=== PATIENT | female | born 1960 | race Caucasian/White ===

== ENCOUNTER 2016-12-31 06:35 | Emergency (ER) | payer MEDICARE, MEDICAID ==
--- NOTE | 2016-12-31 07:09 | ED Physician Chart ---
Chief Complaint/HPI - Patient Information Date Seen:: 12/31/16 Time Seen:: 07:04 Chief Complaint:: abd p History of Present Illness:: pt picked up by ems at [facility], [facility]. stated shes had abd p since last nt w sev [facility] abd p. pt says she has had this before but is not very informative as to prior dx of anguiano hx. says she was admit here for 3 days recently but cant say why. she denies n/v/d or fever. says she is supposed to be on med for depression and xarelto for hx of PE but is noncompliant. she says she is on pain med from time to time rarely but wont say what , how much or when last rxd. pt has been drinking etoh. pt c/o being thirsty and wants water. Allergies:: Allergies Allergy/AdvReac Type Severity Reaction Status Date / Time No Known Allergies Allergy Verified 12/31/16 06:59 Vitals:: Vital Signs - 8 hr 12/31/16 06:40 Temp 97.1 F HR 130 RR 18 BP 138/84 O2 Sat % 97 Historian:: Patient Review of Systems - Review of Systems General/Constitutional: No fever, No chills, No weight loss, No weakness, No diaphoresis, No edema, No loss of appetite Skin: No skin lesions, No rash, No bruising Head: No headache, No light-headedness Eyes: No loss of vision, No pain, No diplopia ENT: No earache, No nasal drainage, No sore throat, No tinnitus Neck: No neck pain, No swelling, No thyromegaly, No stiffness, No mass noted Cardio Vascular: No chest pain, No palpitations, No PND, No orthopnea, No edema Pulmonary: No SOB, No cough, No sputum, No wheezing GI: No nausea, No vomiting, No diarrhea, Pain, No melena, No hematochezia, No constipation, No hematemesis G/U: No dysuria, No frequency, No hematuria Musculoskeletal: No bone or joint pain, No back pain, No muscle pain Endocrine: No polyuria, No polydipsia Psychiatric: No prior psych history, No depression, Anxiety, No suicidal ideation Hematopoietic: No bruising, No lymphadenopathy Allergic/Immuno: No urticaria, No angioedema Neurological: No syncope, No focal symptoms, No weakness, No paresthesia, No headache, No seizure, No dizziness, No confusion, No vertigo Past Medical History - Past Medical History Past Medical History: Other (PE Hx, abd pain (gi bleed from prior records), anxiety) Social History: Alcohol Psychiatricy History: Other (anxiety) Medication: Reviewed Family Medical History - Family Member Mother History Unknown: Yes Ethnicity: Non- Living Status: Hx Family Cancer: Yes (breast and stomach cancer) Hx Family Coronary Artery Disease: No Hx Family Congestive Heart Failure: No Hx Family Hypertension: No Hx Family Stroke: No Hx Family Diabetes: No Hx Family Seizures: No Hx Family Dementia: No Hx Family AIDS: No Hx Family HIV: No Hx Family COPD: No Hx Family Hepatitis: No Hx Family Psychiatric Problems: No Hx Family Tuberculosis: No Father History Unknown: Yes Living Status: Hx Family Cancer: No Hx Family Coronary Artery Disease: No Hx Family Congestive Heart Failure: No Hx Family Hypertension: No Hx Family Stroke: No Hx Family Diabetes: Yes Hx Family Seizures: No Hx Family Dementia: No Hx Family AIDS: No Hx Family HIV: No Hx Family COPD: No Hx Family Hepatitis: No Hx Family Psychiatric Problems: No Hx Family Tuberculosis: No Physical Exam - Physical Examination General/Constitutional: Awake, Well-developed, well-nourished, Alert, No distress, GCS 15, Non-toxic appearing, Ambulatory Other Gen/Cons comments:: mod obese. color ok Head: Atraumatic Eyes: Lids, conjuctiva normal, PERRL, EOMI Skin: Nl inspection, No rash, No skin lesions, No ecchymosis, Well hydrated, No lymphadenopathy ENMT: External ears, nose nl, Nasal exam nl, Lips, teeth, gums nl Neck: Nontender, Full ROM w/o pain, No JVD, No nuchal rigidity, No bruit, No mass, No stridor Respiratory: Nl effort/Exclusion, Clear to Auscultation, No Wheeze/Rhonchi/Rales Cardio Vascular: RRR, No murmur, gallop, rubs, NL S1 S2 GI: No organomegaly, No hernia, Normal BS's, Nondistended, No mass/bruits, No McBurney tenderness Other GI comments:: vague tndr all over : No CVA tenderness Extremities: No tenderness or effusion, Full ROM, normal strength in all extremities, No edema, Normal digits & nails Neuro/Psych: Alert/oriented, DTR's symmetric, Normal sensory exam, Normal motor strength, Judgement/insight normal, Mood normal, Normal gait, No focal deficits Misc: normal gait, Normal back, No paraspinal tenderness Labs/Radiology/EKG Results - Lab Results Results: Laboratory Tests 12/31/16 12/31/16 12/31/16 06:59 06:59 06:59 WBC 9.3 D RBC 4.74 Hgb 14.9 D Hct 44.4 D MCV 93.7 MCH 31.5 H MCHC Differential 33.6 RDW 15.4 Plt Count 368 D MPV 5.7 Neutrophils % 76.1 Lymphocytes % 16.4 L Monocytes % 6.5 Eosinophils % 0.3 Basophils % 0.7 PT 9.6 INR 0.92 PTT (Actin FS) 25.7 L Specimen Source Sample Site pH pCO2 pO2 HCO3 Base Excess O2 Saturation Doc Test Inspired O2 Critical Value Sodium Potassium Chloride Carbon Dioxide Anion Gap BUN Creatinine Est GFR ( Amer) Est GFR (Non-Af Amer) BUN/Creatinine Ratio Glucose Calcium Total Bilirubin AST ALT Alkaline Phosphatase Troponin I Total Protein Albumin Globulin Albumin/Globulin Ratio Triglycerides 727 H Cholesterol 301 H LDL Cholesterol Direct 119 HDL Cholesterol 79 Lipase TSH Ethyl Alcohol 12/31/16 12/31/16 12/31/16 06:59 06:59 06:59 WBC RBC Hgb Hct MCV MCH MCHC Differential RDW Plt Count MPV Neutrophils % Lymphocytes % Monocytes % Eosinophils % Basophils % PT INR PTT (Actin FS) Specimen Source Sample Site pH pCO2 pO2 HCO3 Base Excess O2 Saturation Doc Test Inspired O2 Critical Value Sodium 134 L Potassium 3.9 Chloride 97 L Carbon Dioxide 7.5 L* Anion Gap 33.4 H BUN 19 Creatinine 0.7 Est GFR ( Amer) > 60.0 Est GFR (Non-Af Amer) > 60.0 BUN/Creatinine Ratio 27.1 Glucose 75 Calcium 9.1 Total Bilirubin 0.5 AST 39 ALT 23 Alkaline Phosphatase 242 H Troponin I 0.05 Total Protein 7.5 Albumin 4.5 Globulin 3.0 Albumin/Globulin Ratio 1.5 Triglycerides Cholesterol LDL Cholesterol Direct HDL Cholesterol Lipase TSH 0.29 L Ethyl Alcohol 12/31/16 12/31/16 12/31/16 06:59 06:59 09:04 WBC RBC Hgb Hct MCV MCH MCHC Differential RDW Plt Count MPV Neutrophils % Lymphocytes % Monocytes % Eosinophils % Basophils % PT INR PTT (Actin FS) Specimen Source Arterial Sample Site Left Radial pH 7.12 L* pCO2 31.0 L pO2 70.0 L HCO3 10.6 L Base Excess -18.0 L O2 Saturation 86.0 L Doc Test PASS Inspired O2 21 Critical Value PW Sodium Potassium Chloride Carbon Dioxide Anion Gap BUN Creatinine Est GFR ( Amer) Est GFR (Non-Af Amer) BUN/Creatinine Ratio Glucose Calcium Total Bilirubin AST ALT Alkaline Phosphatase Troponin I Total Protein Albumin Globulin Albumin/Globulin Ratio Triglycerides Cholesterol LDL Cholesterol Direct HDL Cholesterol Lipase 34 TSH Ethyl Alcohol 316 H - Radiology Results Results: ct abd/p - nonobs renal stone. no acute inflamatory change. fatty liver. - EKG Interpretations EKG Time:: 07:00 Rate & Rhythm: nsr 130 [place]: -3 Intervals: ok Assessment - Assessment General Assessment: pt initially denies freq narc hx but later admits is on Percocet (but "wasnt sure if thats a narcotic")..had withheld this earlier. a review of pts chart shows she was here 2 wks ago for abd p w vomiting of ?cg material. a upper endoscopy was performed and showed chronic gastritis...yet pt returns here 2 wks later and s noncompliant w her PPI medication. She given me no explanation as to why she didnt fill it. explains she doesnt know where her is rt now so he cant pick her up. Our anguiano is fairly complete w ct ok no acute. labs concerning for sonia high lipids and acidosis (seen on prior stay also and deemed likely 2nd etoh ..which again seems the case as etoh >300. H+H is stable. pt vomited 1x of brown material in ed. ( i wasnt notified at time but it doesnt sound like dark/tar /cg appearance). DW pt that I think her pain is likely from gastritis which is not being txd and exacerbated by chronic etoh abuse. She has been difficult to staff w freq req for pain meds. have explained to pt that I am not giving her more ms ( narcs) as of now since her etoh so high not safe. giving her gi cocktail and protonix. pt taking po fluids. ED Septic Shock - . Is Septic Shock (SBP<90, OR Lactate>4 mmol\\L) present?: No - <6hrs of presentation: Vital Signs: Vital Signs - 8 hr 12/31/16 06:40 Temp 97.1 F HR 130 RR 18 BP 138/84 O2 Sat % 97 Reassessment (Disposition) - Reassessment Reassessment:: case dw Dr Crouch (10:29a) regarding pt w long ed stay ahead and staff feel pt could be admit...Dr Sylvie romeos says pts problem seems to be etohism (and noncompliance) w gastritis as result... doesnt think admit is of benefit... (;20a)- pt vomited...had been eating sandwhich. emesis examined by me is not bloody or coffee grnds. pt is complaining of pain. had a long dw pt about why i think her pain is from gastritis and in- appropriate care. she needs to start eating food instead of gets all her calories from etoh...she admits is skipping meals and drinking... also needs to be compliant w her protonix which i have rxd again (along w carafate). giving compazine and carafate to pt now. Avelina(RN) notes that the prior emesis (mentioned above) was witnessed by herself as self induced with pt putting finger down throat to induce...she had received zofran hrs before and has been taking po fluid well and not complained of any nausea prior to vomiting. when confronted by Sophie pt now claims has bulemia. pt had a psych eval 2 wks ago here. Pt's behavior seems to be repetitively deceptive and/or withholding of information..and w freq unexplained noncompliance. Have explained to pt we will need to hold her here for repeat etoh and labs check. she is unhappy that she is not receiving more narcotics during this obs time however i explained to her risk of etoh w narcotics and res depression... ...pts has just been reached by phone, and may take her home if he arrives sober. pt advised to take protonix and carafate as rxd and eat regular meals. seeks help w [facility] or other agency for etohism as her life may be greatly expanded in range if she can do this and liver shows fatty infiltration, gastritis and hyperlipidemia all are result of this behavior and hepatitis/cirrhosis can be expected if this persists. pt advised to see pmd modesta and/or return if worse( worse pain, fever,weakness, dehydration, persistent vomiting/diarrhea, bloody emesis...) pt's arrived ...and a short time later pts hr which had been trending downwards suddenly inexplicably jumped up to 150...it resolved back down within the hour and jasiel suspicion of outside drug/med ingestion given pts course (she act described a prior hosp stay where she was pos for etoh after a week in hosp...also inexplicably...) given pt vs lability i advised pt to have repeat labs and drug screen. would be reassuring to see acidosis improving ...however pt opted to sign out ama w signing forms. Reassessment Condition:: Improved - Diagnosis Diagnosis:: 1 etohic 2 dehydration 3 abdominal pain 2nd gastritis hx w noncompliant w tx plan 4 bullemia hx (self reported by pt) 5 severe hyperlipidemia 5 acidosis presumed related to etoh - Aftercare/Follow up Instructions Aftercare/Follow-Up Instructions:: Counseled pt regarding lab results/diagnosis & need follow up - Patient Disposition Discharge/Transfer:: Against Medical Advice Condition at Disposition:: Improved ED Discharge Plan - Patient Disposition Prescriptions: Pantoprazole [Protonix] 40 mg PO DAILY #30 ect Sucralfate [Carafate] 1 gm PO TID PRN #50 tab PRN Reason: gastric pain Instructions: Gastritis, Adult, [id number], Dehydration, Adult, [id number] , Alcohol Intoxication Additional Instructions: Pls follow up with PMD in 1 day.
[2016-12-31 07:10] LABS: % BASOPHILS 0.7 % (0.0-2.0); % EOSINOPHILS 0.3 % (0.0-5.0); % LYMPHOCYTES 16.4 % (20.0-50.0); % MONOCYTES 6.5 % (2.0-10.0); % NEUTROPHILS 76.1 % (40.0-80.0); MEAN CELL VOLUME 93.7 fl (81-100); MEAN CORPUSCULAR HEMOGLOBIN 31.5 pg (27.0-31.0); MEAN CORPUSCULAR HGB CONC 33.6 pg (28.0-36.0); MEAN PLATELET VOLUME 5.7 fl; NEUTROPHILE ABSOLUTE 7.1 Th/cmm (1.8-8.0); RED BLOOD COUNT 4.74 Mil/cmm (3.80-5.10); RED CELL DISTRIBUTION WIDTH 15.4 % (11.5-20.0)
[2016-12-31] MEDS ORDERED: Sodium Chloride 0.9% 1,000 ML IV ONE ×3 (07:10→10:21)
[2016-12-31 07:12] LABS: HEMATOCRIT 44.4 % (35.0-45.0); HEMOGLOBIN 14.9 gm/dL (11.7-15.5); PLATELET COUNT 368 Th/cmm (150-400); WHITE BLOOD COUNT 9.3 Th/cmm (4.8-10.8)
[2016-12-31] MEDS ORDERED: Morphine Sulfate 4 mg/mL 1mL Syr ONE (07:14)
[2016-12-31 07:28] LABS: INR 0.92 (0.5-1.4); PROTHROMBIN TIME (TEST) 9.6 SECONDS (9.5-11.5)
[2016-12-31 07:30] LABS: ALB/GLOB RATIO 1.5 (1.0-1.8); ALKALINE PHOSPHATASE 242 U/L (34-104); ANION GAP 33.4 (7.0-16.0); BILIRUBIN,TOTAL 0.5 mg/dL (0.3-1.0); BUN - UREA NITROGEN 19 mg/dL (7-25); BUN/CREATININE RATIO 27.1; CALCIUM SERUM 9.1 mg/dL (8.6-10.3); CHLORIDE 97 mEq/L (98-107); CREATININE - SERUM 0.7 mg/dL (0.6-1.2); GLUCOSE 75 mg/dL (70-105); POTASSIUM SERUM 3.9 mEq/L (3.5-5.1); SGOT 39 U/L (13-39); SGPT/ALT 23 U/L (7-52); SODIUM SERUM 134 mEq/L (136-145)
[2016-12-31 07:31] LABS: CHOLESTEROL 301 mg/dL (<200); TRIGLYCERIDES 727 mg/dL (<150)
[2016-12-31 07:33] LABS: CARBON DIOXIDE 7.5 mEq/L (21.0-31.0)
--- NOTE | 2016-12-31 09:08 | Diagnostic Imaging Report ---
CT scan abdomen and pelvis without intravenous contrast HISTORY: Pain Total DLP equals 369 CTDI equals 7.8 Axial sections were obtained from the xiphoid process down to the pubic symphysis. Exam is compared with a prior study of December 17, 2016. The exam of the liver demonstrates a decrease in overall parenchymal density consistent with fatty infiltration. The findings should be correlated with liver function tests. No focal lesions. The spleen appears normal. No focal abnormality seen in the region of the pancreas. Surgical clips are seen in the gege hepatis region consistent with prior cholecystectomy. The right kidney appears normal. Again noted and unchanged is an approximate 5 mm calculus within the medullary region of the left kidney without hydronephrosis. Mild atherosclerotic calcination seen in the aorta. The exam of the pelvis demonstrates a distended urinary bladder. No abnormal masses or abnormal fluid collections. Degenerative changes and scoliosis seen in the spine. IMPRESSION: 1. No definite acute abnormalities 2. 5 mm nonobstructing left renal catheter 3. Findings consistent with hepatic fatty infiltration 4. Moderately distended urinary bladder
[2016-12-31 09:23] LABS: HCO3 10.6 mEq/L (20.0-26.0)
[2016-12-31 09:24] LABS: ABG SOURCE Arterial; ALLEN TEST PASS; CRITICAL VALUES REPORTED BY PW; FIO2 21; pH 7.12 (7.35-7.45)
[2016-12-31] MEDS ORDERED: Maalox 30 mL Cup PO ONE (10:02)
[2016-12-31] MEDS ORDERED: Pantoprazole 40 mg EC Tab PO STA (10:02)
[2016-12-31] MEDS ORDERED: Donnatal Liq 5 ML UDC PO ONE (10:02)
[2016-12-31 10:04] LABS: URINE BILIRUBIN NEGATIVE (NEGATIVE); URINE COLOR YELLOW; URINE GLUCOSE (UA) NEGATIVE (NEGATIVE)
[2016-12-31] MEDS ORDERED: Maalox 30 mL Cup ONE (10:06)
[2016-12-31] MEDS ORDERED: Donnatal Liq 5 ML UDC ONE (10:07)
[2016-12-31] MEDS ORDERED: Pantoprazole 40 mg EC Tab PO ONE (10:07)
[2016-12-31 10:17] LABS: URINE BLOOD MODERATE (NEGATIVE); URINE PH 5.5; URINE PROTEIN 100 mg/dL (NEGATIVE)
[2016-12-31 10:18] LABS: URINE UROBILINOGEN 0.2 E.U./dL (0.2 - 1.0)
[2016-12-31 10:21] LABS: URINE BACTERIA MANY /hpf (NONE SEEN); URINE EPITHELIAL CELLS MODERATE /lpf (FEW)
[2016-12-31] MEDS ORDERED: Sodium Chloride 0.9% 500 ML IV ONE (10:21)
[2016-12-31 10:24] LABS: AMPHETAMINE URINE NEGATIVE (NEGATIVE); BARBITURATES URINE NEGATIVE (NEGATIVE); METHADONE URINE NEGATIVE (NEGATIVE)
[2016-12-31] MEDS ORDERED: Prochlorperazine 5 mg/mL 2mL Vial IVP STA (11:22)
[2016-12-31] MEDS ORDERED: Prochlorperazine 5 mg/mL 2mL Vial ONE (11:24)
== END 2016-12-31 12:40 | disposition left against medical advice (07) ==
LOC: ER 06:35
DX: R10.9 Unspecified abdominal pain (principal); F10.20 Alcohol dependence, uncomplicated; E86.0 Dehydration; E78.5 Hyperlipidemia, unspecified; E87.2 Acidosis
CPT/HCPCS: 36415-UA; 36600-90; 80053-TC; 80061-TC; 80307; 80320-TC; 81001-TC; 82803-TC; 83690-TC; 84443-TC; 84484-TC; 85025-TC; 85610-TC; 85730-TC; 86592-TC; 93005; 96374; 96375; J0780; J1885; J2405; J7030; Z7610

== ENCOUNTER 2017-02-11 11:36 | Inpatient (IN) | payer MEDICARE, MEDICAID ==
[2017-02-11 12:01] LABS: % BASOPHILS 0.5 % (0.0-2.0); % LYMPHOCYTES 24.9 % (20.0-50.0); % NEUTROPHILS 66.6 % (40.0-80.0); MEAN CELL VOLUME 93.9 fl (81-100); MEAN CORPUSCULAR HEMOGLOBIN 31.7 pg (27.0-31.0); MEAN CORPUSCULAR HGB CONC 33.8 pg (28.0-36.0); MEAN PLATELET VOLUME 6.2 fl; NEUTROPHILE ABSOLUTE 5.7 Th/cmm (1.8-8.0); PLATELET COUNT 389 Th/cmm (150-400); RED CELL DISTRIBUTION WIDTH 14.1 % (11.5-20.0); WHITE BLOOD COUNT 8.5 Th/cmm (4.8-10.8)
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
[2017-02-11 12:18] LABS: HEMATOCRIT 38.5 % (35.0-45.0)
[2017-02-11 12:19] LABS: ALB/GLOB RATIO 1.6 (1.0-1.8); ALKALINE PHOSPHATASE 114 U/L (34-104); ANION GAP 14.8 (7.0-16.0); BILIRUBIN,TOTAL 0.4 mg/dL (0.3-1.0); BUN - UREA NITROGEN 9 mg/dL (7-25); CALCIUM SERUM 9.9 mg/dL (8.6-10.3); CARBON DIOXIDE 23.1 mEq/L (21.0-31.0); CHLORIDE 109 mEq/L (98-107); CHOLESTEROL 221 mg/dL (<200); CREATININE - SERUM 0.5 mg/dL (0.6-1.2); GLUCOSE 97 mg/dL (70-105); POTASSIUM SERUM 3.9 mEq/L (3.5-5.1); SGOT 14 U/L (13-39); SGPT/ALT 8 U/L (7-52); SODIUM SERUM 143 mEq/L (136-145); TRIGLYCERIDES 261 mg/dL (<150)
[2017-02-11 13:20] VITALS: BP 134/76
[2017-02-11] MEDS ORDERED: Maalox 30 mL Cup PO PRN (13:21)
--- NOTE | 2017-02-11 16:05 | History & Physical ---
ADMIT DATE: 02/11/2017 CHIEF COMPLAINT: Depression. HISTORY OF PRESENT ILLNESS: This is a 56-year-old female who was brought to [facility] for depression. The patient states that she had plan to kill herself by taking pills. For this reason, the patient is now admitted to the Geropsych Unit. PAST MEDICAL HISTORY: DJD, chronic pain syndrome, history of alcohol abuse. MEDICATIONS: Please see medication reconciliation. ALLERGIES: No drug allergies. SOCIAL HISTORY: The patient was a former smoker and the patient currently alcohol abuser. The patient denies any illicit drugs. FAMILY HISTORY: Noncontributory. REVIEW OF SYSTEMS: GENERAL: Denies fevers, chills. CARDIOVASCULAR: Denies chest pain. RESPIRATORY: Denies SOB. GASTROINTESTINAL: Denies nausea, vomiting, abdominal pain. GENITOURINARY: Denies increased frequency or dysuria. All other systems are reviewed by me and are negative. PHYSICAL EXAMINATION: GENERAL: The patient is well developed, well nourished, no acute distress. VITAL SIGNS: Temperature 98.1, heart rate 101, blood pressure 121/91, respirations 18, O2 96%. HEENT: Head; normocephalic, atraumatic. NECK: Supple. No mass. LUNGS: Clear bilaterally. HEART: Regular rhythm. ABDOMEN: Soft, nontender. LABORATORY DATA: WBC 8.5, H and H 13.0 and 38.5, platelet of 389. Sodium 142, potassium 3.9, chloride 109, BUN 9, creatinine 0.5. ASSESSMENT: 1. History of alcohol abuse. 2. Degenerative joint disease. 3. Chronic back pain. 4. Depression. PLAN: The patient to be admitted to the Geropsych Unit. We will continue patient's home medications. Continue present management. JOB# [id number]
[2017-02-11] MEDS ORDERED: Magnesium Hydroxide (MOM) 30 mL UDC PO PRN (21:00)
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
--- NOTE | 2017-02-12 00:50 | History & Physical ---
ADMIT DATE: 02/11/2017 DICTATION ENDS HERE JOB# [id number]
--- NOTE | 2017-02-12 04:34 | Admit Criteria Form ---
Admit Criteria Forms - Admit Criteria Diagnosis: PSYCHIATRIC DISORDERS (Place 'X' for any and all applicable criteria): Ongoing inpatient care may be needed for 1 or more of the following(1)(2)(3)(4)( 6)(7)(8): [X ]I. Danger to self or others not manageable at lower level of care. [ ]II. Grave disability (eg, inability to perform self care necessary at lower level of care) [ ]III. Agitation or inappropriate behavior interfering with care for primary condition (eg, attempting to discontinue lines or drains prematurely, unable to cooperate with respiratory care) [ ]IV. Severe disability or disorder indicated by ALL of the following: [ ]a) Severe behavioral health disorder-related symptoms or condition indicated by 1 or more of the following: [ ]i) Severe problem with cognition, memory, judgment, or impulse control [ ]ii) Severe clinical manifestations (eg, hallucinations, delusions, other acute psychotic symptoms, julien, extreme agitation or anxiety) [ ]b) Patient management at lower level of care is not feasible until acute intervention or modification is initiated. Extended stay beyond goal length of stay for the primary condition may be needed until ALLof the following are present(1)(2)(3)(4)7)87)(23): [ ]a) Danger to self or others is absent or manageable at lower level of care [ ]b) Behavior crisis management, including physical or chemical restraints, is required and is not available at a lower level of care. [ ]c) Behavioral symptoms (e.g., agitation, somnolence, inappropriate behavior) are present, and are not manageable at a lower level of care. [ ]d) Patient cannot understand follow-up treatment and crisis plan. [ ]e) Provider and supports are sufficiently available at lower level of care. [ ]f) Patient can participate (e.g., verify absence of plan for harm) and is in needed of monitoring. The original [facility] content created by [facility] has been revised. The portions of the content which have been revised are identified through the use of italic text or in bold, and [facility] [employer] has neither reviewed nor approved the modified material. All other unmodified content is copyright [facility]. Please see references footnoted in the original [facility] edition 2017 Admit Criteria Met?: Yes
[2017-02-12] MEDS: Multivitamin Tab PO SCH (08:53)
[2017-02-12] MEDS ORDERED: HYDROCODONE BITARTRATE 30 MG PO SCH (09:00)
--- NOTE | 2017-02-12 13:21 | Progress Notes ---
DATE: 02/11/2017 The patient was discharged on 02/10/2017, however, due to issues with placement and bed availability, the discharge was delayed. She is discharging today, on 02/11/2017. No overt SI or HI. The patient denying any SI. No psychotic symptoms, calm, cooperative, friendly, linear, engaged, no events per staff. JOB# [id number]
--- NOTE | 2017-02-13 03:17 | Progress Notes ---
DATE: 02/11/2017 SUBJECTIVE: The patient was seen, chart reviewed, and discussed with staff. The patient remains depressed, withdrawn, slowly leading to SI, not rodney for safety, hopeless, despairing, wants to stay sober, does not know how to stay sober. in [facility], restraining orders. She cannot talk to him. She is constantly worried, feeling guilty, hopeless and despairing. Also with nausea, being treated appropriately. Sleep disturbed. Appetite poor. ASSESSMENT: The patient is linear and engaged, but slowly leading to SI, hopeless, psychological distress and turmoil, not rodney for safety. On a positive note, she is motivated for sobriety, thinking about a sober living. PLAN: We will continue to monitor, continue Cymbalta and titrate appropriately. The patient is not safe for a lower level of care at this time. JOB# [id number]
[2017-02-13] MEDS: Multivitamin Tab PO SCH (08:36)
--- NOTE | 2017-02-13 19:14 | Internal Medicine Prog Note ---
Internal Medicine Objective - Results Result Diagrams: 02/11/17 11:52 02/11/17 11:52 Recent Labs: Laboratory Last Values WBC 8.5 Th/cmm (4.8-10.8) 02/11/17 11:52 RBC 4.10 Mil/cmm (3.80-5.10) 02/11/17 11:52 Hgb 13.0 gm/dL (11.7-15.5) 02/11/17 11:52 Hct 38.5 % (35.0-45.0) D 02/11/17 11:52 MCV 93.9 fl (81-100) 02/11/17 11:52 MCH 31.7 pg (27.0-31.0) H 02/11/17 11:52 MCHC Differential 33.8 pg (28.0-36.0) 02/11/17 11:52 RDW 14.1 % (11.5-20.0) 02/11/17 11:52 Plt Count 389 Th/cmm (150-400) 02/11/17 11:52 MPV 6.2 fl 02/11/17 11:52 Neutrophils % 66.6 % (40.0-80.0) 02/11/17 11:52 Lymphocytes % 24.9 % (20.0-50.0) 02/11/17 11:52 Monocytes % 6.0 % (2.0-10.0) 02/11/17 11:52 Eosinophils % 2.0 % (0.0-5.0) 02/11/17 11:52 Basophils % 0.5 % (0.0-2.0) 02/11/17 11:52 Sodium 143 mEq/L (136-145) 02/11/17 11:52 Potassium 3.9 mEq/L (3.5-5.1) 02/11/17 11:52 Chloride 109 mEq/L (98-107) H 02/11/17 11:52 Carbon Dioxide 23.1 mEq/L (21.0-31.0) 02/11/17 11:52 Anion Gap 14.8 (7.0-16.0) 02/11/17 11:52 BUN 9 mg/dL (7-25) 02/11/17 11:52 Creatinine 0.5 mg/dL (0.6-1.2) L 02/11/17 11:52 Est GFR ( Amer) > 60.0 ml/min (>90) 02/11/17 11:52 Est GFR (Non-Af Amer) > 60.0 ml/min 02/11/17 11:52 BUN/Creatinine Ratio 18.0 02/11/17 11:52 Glucose 97 mg/dL (70-105) 02/11/17 11:52 Calcium 9.9 mg/dL (8.6-10.3) 02/11/17 11:52 Total Bilirubin 0.4 mg/dL (0.3-1.0) 02/11/17 11:52 AST 14 U/L (13-39) 02/11/17 11:52 ALT 8 U/L (7-52) 02/11/17 11:52 Alkaline Phosphatase 114 U/L (34-104) H 02/11/17 11:52 Troponin I 0.01 ng/mL (0.01-0.05) 02/11/17 11:52 Total Protein 7.4 gm/dL (6.0-8.3) 02/11/17 11:52 Albumin 4.6 gm/dL (3.7-5.3) 02/11/17 11:52 Globulin 2.8 gm/dL 02/11/17 11:52 Albumin/Globulin Ratio 1.6 (1.0-1.8) 02/11/17 11:52 Triglycerides 261 mg/dL (<150) H 02/11/17 11:52 Cholesterol 221 mg/dL (<200) H 02/11/17 11:52 LDL Cholesterol Direct 108 mg/dL (75-193) 02/11/17 11:52 HDL Cholesterol 65 mg/dL (23-92) 02/11/17 11:52 TSH 0.88 uIU/ml (0.34-5.60) 02/11/17 11:52 - Physical Exam Vitals and I&O: Vital Signs Temp 97.6 F 02/13/17 14:00 Pulse 114 02/13/17 14:00 Resp 20 02/13/17 14:00 BP 134/84 02/13/17 14:00 Pulse Ox 96 02/13/17 14:00 Intake & Output 02/13/17 02/13/17 02/14/17 06:59 18:59 06:59 Intake Total 2400 Balance 2400 Intake: Oral 2400 Other: # Voids 4 # Bowel Movements 1 Active Medications: Current Medications Acetaminophen (Tylenol) 650 mg PO Q4H PRN PRN Reason: Mild Pain / Temp above 100 Stop: 04/12/17 13:20 Al Hydrox/Mg Hydrox/Simethicone (Maalox) 30 ml PO Q4H PRN PRN Reason: GI DISTRESS Stop: 04/12/17 13:20 Last Admin: 02/12/17 13:06 Dose: 30 ml Duloxetine HCl (Cymbalta) 60 mg PO DAILY GRAZYNA PRN Reason: Protocol Stop: 04/14/17 11:51 Gabapentin (Neurontin) 300 mg PO BID GRAYZNA Stop: 04/12/17 16:59 Last Admin: 02/13/17 16:52 Dose: 300 mg Lorazepam (Ativan) 1 mg PO Q4H PRN; Protocol PRN Reason: Anxiety Stop: 04/12/17 15:26 Last Admin: 02/13/17 08:36 Dose: 1 mg Magnesium Hydroxide (Milk Of Magnesia) 30 ml PO HS PRN PRN Reason: Constipation Multivitamins/Vitamin C (Theragran) 1 tab PO DAILY GRAYZNA Stop: 04/13/17 08:59 Last Admin: 02/13/17 08:36 Dose: 1 tab Ondansetron HCl (Zofran Odt) 4 mg PO Q6H PRN PRN Reason: Nausea Stop: 04/13/17 16:14 Last Admin: 02/12/17 23:19 Dose: 4 mg Oxycodone HCl (Oxycontin) 20 mg PO DAILY GRAYZNA Stop: 04/13/17 08:59 Last Admin: 02/13/17 08:03 Dose: Not Given Oxycodone HCl (Oxycontin) 20 mg PO Q8HR PRN PRN Reason: Severe Pain Stop: 04/13/17 16:59 Last Admin: 02/13/17 13:06 Dose: 20 mg Quetiapine Fumarate (Seroquel) 50 mg PO HS GRAZYNA PRN Reason: Protocol Stop: 04/12/17 20:59 Last Admin: 02/12/17 20:12 Dose: 50 mg Zolpidem Tartrate (Ambien) 5 mg PO HS PRN PRN Reason: Insomnia Stop: 04/12/17 20:59 Last Admin: 02/12/17 20:12 Dose: 5 mg - Procedures Procedures: Procedures Procedure Code Date EGD BIOPSY SINGLE/MULTIPLE 85878 12/17/16 EXCISION OF STOMACH, ENDO, DIAGN [id number] 12/17/16
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
[2017-02-14] MEDS: Multivitamin Tab PO SCH (08:26)
--- NOTE | 2017-02-14 08:58 | General Progress Note ---
Subjective - Review of Systems Events since last encounter: patient continue to feel depressed withdrawn Objective - Results Result Diagrams: 02/11/17 11:52 02/11/17 11:52 Recent Labs: Laboratory Last Values WBC 8.5 Th/cmm (4.8-10.8) 02/11/17 11:52 RBC 4.10 Mil/cmm (3.80-5.10) 02/11/17 11:52 Hgb 13.0 gm/dL (11.7-15.5) 02/11/17 11:52 Hct 38.5 % (35.0-45.0) D 02/11/17 11:52 MCV 93.9 fl (81-100) 02/11/17 11:52 MCH 31.7 pg (27.0-31.0) H 02/11/17 11:52 MCHC Differential 33.8 pg (28.0-36.0) 02/11/17 11:52 RDW 14.1 % (11.5-20.0) 02/11/17 11:52 Plt Count 389 Th/cmm (150-400) 02/11/17 11:52 MPV 6.2 fl 02/11/17 11:52 Neutrophils % 66.6 % (40.0-80.0) 02/11/17 11:52 Lymphocytes % 24.9 % (20.0-50.0) 02/11/17 11:52 Monocytes % 6.0 % (2.0-10.0) 02/11/17 11:52 Eosinophils % 2.0 % (0.0-5.0) 02/11/17 11:52 Basophils % 0.5 % (0.0-2.0) 02/11/17 11:52 Sodium 143 mEq/L (136-145) 02/11/17 11:52 Potassium 3.9 mEq/L (3.5-5.1) 02/11/17 11:52 Chloride 109 mEq/L (98-107) H 02/11/17 11:52 Carbon Dioxide 23.1 mEq/L (21.0-31.0) 02/11/17 11:52 Anion Gap 14.8 (7.0-16.0) 02/11/17 11:52 BUN 9 mg/dL (7-25) 02/11/17 11:52 Creatinine 0.5 mg/dL (0.6-1.2) L 02/11/17 11:52 Est GFR ( Amer) > 60.0 ml/min (>90) 02/11/17 11:52 Est GFR (Non-Af Amer) > 60.0 ml/min 02/11/17 11:52 BUN/Creatinine Ratio 18.0 02/11/17 11:52 Glucose 97 mg/dL (70-105) 02/11/17 11:52 Calcium 9.9 mg/dL (8.6-10.3) 02/11/17 11:52 Total Bilirubin 0.4 mg/dL (0.3-1.0) 02/11/17 11:52 AST 14 U/L (13-39) 02/11/17 11:52 ALT 8 U/L (7-52) 02/11/17 11:52 Alkaline Phosphatase 114 U/L (34-104) H 02/11/17 11:52 Troponin I 0.01 ng/mL (0.01-0.05) 02/11/17 11:52 Total Protein 7.4 gm/dL (6.0-8.3) 02/11/17 11:52 Albumin 4.6 gm/dL (3.7-5.3) 02/11/17 11:52 Globulin 2.8 gm/dL 02/11/17 11:52 Albumin/Globulin Ratio 1.6 (1.0-1.8) 02/11/17 11:52 Triglycerides 261 mg/dL (<150) H 02/11/17 11:52 Cholesterol 221 mg/dL (<200) H 02/11/17 11:52 LDL Cholesterol Direct 108 mg/dL (75-193) 02/11/17 11:52 HDL Cholesterol 65 mg/dL (23-92) 02/11/17 11:52 TSH 0.88 uIU/ml (0.34-5.60) 02/11/17 11:52 RPR NONREACTIVE (NONREACTIVE) 02/11/17 11:52 - Physical Exam Vitals and I&O: Vital Signs Temp 98.6 F 02/14/17 06:49 Pulse 94 02/14/17 06:49 Resp 20 02/14/17 06:49 BP 144/88 02/14/17 06:49 Pulse Ox 96 02/14/17 06:49 Intake & Output 02/13/17 02/14/17 02/14/17 18:59 06:59 18:59 Intake Total 2400 120 Balance 2400 120 Intake: Oral 2400 120 Other: # Voids 4 3 # Bowel Movements 1 Active Medications: Current Medications Acetaminophen (Tylenol) 650 mg PO Q4H PRN PRN Reason: Mild Pain / Temp above 100 Stop: 04/12/17 13:20 Al Hydrox/Mg Hydrox/Simethicone (Maalox) 30 ml PO Q4H PRN PRN Reason: GI DISTRESS Stop: 04/12/17 13:20 Last Admin: 02/12/17 13:06 Dose: 30 ml Duloxetine HCl (Cymbalta) 60 mg PO DAILY GRAZYNA PRN Reason: Protocol Stop: 04/14/17 11:51 Last Admin: 02/14/17 08:25 Dose: 60 mg Gabapentin (Neurontin) 300 mg PO BID GRAZYNA Stop: 04/12/17 16:59 Last Admin: 02/14/17 08:26 Dose: 300 mg Hydrocortisone (Hydrocortisone 1%) 1 appl TP TID GRAZYNA Stop: 04/14/17 20:59 Last Admin: 02/14/17 08:49 Dose: 1 appl Lorazepam (Ativan) 1 mg PO Q4H PRN; Protocol PRN Reason: Anxiety Stop: 04/12/17 15:26 Last Admin: 02/13/17 08:36 Dose: 1 mg Magnesium Hydroxide (Milk Of Magnesia) 30 ml PO HS PRN PRN Reason: Constipation Multivitamins/Vitamin C (Theragran) 1 tab PO DAILY GRAZYNA Stop: 04/13/17 08:59 Last Admin: 02/14/17 08:26 Dose: 1 tab Ondansetron HCl (Zofran Odt) 4 mg PO Q6H PRN PRN Reason: Nausea Stop: 04/13/17 16:14 Last Admin: 02/12/17 23:19 Dose: 4 mg Oxycodone HCl (Oxycontin) 20 mg PO DAILY GRAZYNA Stop: 04/13/17 08:59 Last Admin: 02/13/17 08:03 Dose: Not Given Oxycodone HCl (Oxycontin) 20 mg PO Q8HR PRN PRN Reason: Severe Pain Stop: 04/13/17 16:59 Last Admin: 02/14/17 06:12 Dose: 20 mg Quetiapine Fumarate (Seroquel) 50 mg PO HS GRAZYNA PRN Reason: Protocol Stop: 04/12/17 20:59 Last Admin: 02/13/17 21:16 Dose: 50 mg Zolpidem Tartrate (Ambien) 5 mg PO HS PRN PRN Reason: Insomnia Stop: 04/12/17 20:59 Last Admin: 02/12/17 20:12 Dose: 5 mg - Procedures Procedures: Procedures Procedure Code Date EGD BIOPSY SINGLE/MULTIPLE 76763 12/17/16 EXCISION OF STOMACH, ENDO, DIAGN [id number] 12/17/16 Assessment/Plan - Problem List Patient Problems: All Active Problems SUICIDAL IDEATION; CHRONIC PAIN (Acute) Chest pain (Acute) R07.9
[2017-02-15] MEDS: Multivitamin Tab PO SCH (08:44)
--- NOTE | 2017-02-15 11:41 | General Progress Note ---
Subjective - Review of Systems Events since last encounter: patient awake, no distress Objective - Results Result Diagrams: 02/11/17 11:52 02/11/17 11:52 Recent Labs: Laboratory Last Values WBC 8.5 Th/cmm (4.8-10.8) 02/11/17 11:52 RBC 4.10 Mil/cmm (3.80-5.10) 02/11/17 11:52 Hgb 13.0 gm/dL (11.7-15.5) 02/11/17 11:52 Hct 38.5 % (35.0-45.0) D 02/11/17 11:52 MCV 93.9 fl (81-100) 02/11/17 11:52 MCH 31.7 pg (27.0-31.0) H 02/11/17 11:52 MCHC Differential 33.8 pg (28.0-36.0) 02/11/17 11:52 RDW 14.1 % (11.5-20.0) 02/11/17 11:52 Plt Count 389 Th/cmm (150-400) 02/11/17 11:52 MPV 6.2 fl 02/11/17 11:52 Neutrophils % 66.6 % (40.0-80.0) 02/11/17 11:52 Lymphocytes % 24.9 % (20.0-50.0) 02/11/17 11:52 Monocytes % 6.0 % (2.0-10.0) 02/11/17 11:52 Eosinophils % 2.0 % (0.0-5.0) 02/11/17 11:52 Basophils % 0.5 % (0.0-2.0) 02/11/17 11:52 Sodium 143 mEq/L (136-145) 02/11/17 11:52 Potassium 3.9 mEq/L (3.5-5.1) 02/11/17 11:52 Chloride 109 mEq/L (98-107) H 02/11/17 11:52 Carbon Dioxide 23.1 mEq/L (21.0-31.0) 02/11/17 11:52 Anion Gap 14.8 (7.0-16.0) 02/11/17 11:52 BUN 9 mg/dL (7-25) 02/11/17 11:52 Creatinine 0.5 mg/dL (0.6-1.2) L 02/11/17 11:52 Est GFR ( Amer) > 60.0 ml/min (>90) 02/11/17 11:52 Est GFR (Non-Af Amer) > 60.0 ml/min 02/11/17 11:52 BUN/Creatinine Ratio 18.0 02/11/17 11:52 Glucose 97 mg/dL (70-105) 02/11/17 11:52 Calcium 9.9 mg/dL (8.6-10.3) 02/11/17 11:52 Total Bilirubin 0.4 mg/dL (0.3-1.0) 02/11/17 11:52 AST 14 U/L (13-39) 02/11/17 11:52 ALT 8 U/L (7-52) 02/11/17 11:52 Alkaline Phosphatase 114 U/L (34-104) H 02/11/17 11:52 Troponin I 0.01 ng/mL (0.01-0.05) 02/11/17 11:52 Total Protein 7.4 gm/dL (6.0-8.3) 02/11/17 11:52 Albumin 4.6 gm/dL (3.7-5.3) 02/11/17 11:52 Globulin 2.8 gm/dL 02/11/17 11:52 Albumin/Globulin Ratio 1.6 (1.0-1.8) 02/11/17 11:52 Triglycerides 261 mg/dL (<150) H 02/11/17 11:52 Cholesterol 221 mg/dL (<200) H 02/11/17 11:52 LDL Cholesterol Direct 108 mg/dL (75-193) 02/11/17 11:52 HDL Cholesterol 65 mg/dL (23-92) 02/11/17 11:52 TSH 0.88 uIU/ml (0.34-5.60) 02/11/17 11:52 RPR NONREACTIVE (NONREACTIVE) 02/11/17 11:52 - Physical Exam Vitals and I&O: Vital Signs Temp 97.6 F 02/15/17 06:12 Pulse 92 02/15/17 11:21 Resp 20 02/15/17 11:21 BP 130/80 02/15/17 06:12 Pulse Ox 97 02/15/17 06:12 Intake & Output 02/14/17 02/15/17 02/15/17 18:59 06:59 18:59 Intake Total 1700 Balance 1700 Intake: Oral 1700 Other: # Voids 4 2 # Bowel Movements 1 0 Active Medications: Current Medications Acetaminophen (Tylenol) 650 mg PO Q4H PRN PRN Reason: Mild Pain / Temp above 100 Stop: 04/12/17 13:20 Last Admin: 02/14/17 19:02 Dose: 650 mg Al Hydrox/Mg Hydrox/Simethicone (Maalox) 30 ml PO Q4H PRN PRN Reason: GI DISTRESS Stop: 04/12/17 13:20 Last Admin: 02/12/17 13:06 Dose: 30 ml Duloxetine HCl (Cymbalta) 60 mg PO DAILY GRAZYNA PRN Reason: Protocol Stop: 04/14/17 11:51 Last Admin: 02/15/17 08:44 Dose: 60 mg Gabapentin (Neurontin) 300 mg PO BID GRAZYNA Stop: 04/12/17 16:59 Last Admin: 02/15/17 08:44 Dose: 300 mg Hydrocortisone (Hydrocortisone 1%) 1 appl TP TID GRAZYNA Stop: 04/14/17 20:59 Last Admin: 02/15/17 08:45 Dose: 1 appl Lorazepam (Ativan) 1 mg PO Q4H PRN; Protocol PRN Reason: Anxiety Stop: 04/12/17 15:26 Last Admin: 02/13/17 08:36 Dose: 1 mg Magnesium Hydroxide (Milk Of Magnesia) 30 ml PO HS PRN PRN Reason: Constipation Multivitamins/Vitamin C (Theragran) 1 tab PO DAILY GRAZYNA Stop: 04/13/17 08:59 Last Admin: 02/15/17 08:44 Dose: 1 tab Ondansetron HCl (Zofran Odt) 4 mg PO Q6H PRN PRN Reason: Nausea Stop: 04/13/17 16:14 Last Admin: 02/12/17 23:19 Dose: 4 mg Oxycodone HCl (Oxycontin) 20 mg PO DAILY GRAZYNA Stop: 04/13/17 08:59 Last Admin: 02/15/17 08:45 Dose: Not Given Oxycodone HCl (Oxycontin) 20 mg PO Q8HR PRN PRN Reason: Severe Pain Stop: 04/13/17 16:59 Last Admin: 02/15/17 06:58 Dose: 20 mg Quetiapine Fumarate (Seroquel) 50 mg PO HS GRAZYNA PRN Reason: Protocol Stop: 04/12/17 20:59 Last Admin: 02/14/17 21:12 Dose: 50 mg Zolpidem Tartrate (Ambien) 5 mg PO HS PRN PRN Reason: Insomnia Stop: 04/12/17 20:59 Last Admin: 02/12/17 20:12 Dose: 5 mg - Procedures Procedures: Procedures Procedure Code Date EGD BIOPSY SINGLE/MULTIPLE 98063 12/17/16 EXCISION OF STOMACH, ENDO, DIAGN [id number] 12/17/16 Assessment/Plan - Problem List Patient Problems: All Active Problems SUICIDAL IDEATION; CHRONIC PAIN (Acute) Chest pain (Acute) R07.9
--- NOTE | 2017-02-15 13:52 | Progress Notes ---
DATE: 02/11/2017 Dr. Parada covering for Dr. Noriega. SUBJECTIVE: Chart reviewed and the patient interviewed. Also discussed the patient's condition with the staff and reviewed records and labs. The patient seems to be calmer and seems to be slightly less intrusive. She is still writing notes about staff and about what is happening in the unit, but at the same time, she is slightly easier to redirect and she seems to be slightly less paranoid. She also did not call patient's ____ yesterday, which is a behavior that she was doing the days before. She also is easier to follow directions. ASSESSMENT: The patient is still psychotic, but showing some improvement. TREATMENT PLAN: We will continue monitoring her behavior and her condition closely. Also, Dr. Noriega has the patient on Seroquel 50 mg at bedtime for the last 2 days, which seemed to do some slight improvement. The patient also continues to take Cymbalta and continue to take Neurontin. No side effects of medications. We will continue same dose and we will continue to follow her condition closely. JOB# [id number]
--- NOTE | 2017-02-16 07:01 | General Progress Note ---
Subjective - Review of Systems Events since last encounter: patient awake, no acute distress condition improving slowly Objective - Results Result Diagrams: 02/11/17 11:52 02/11/17 11:52 Recent Labs: Laboratory Last Values WBC 8.5 Th/cmm (4.8-10.8) 02/11/17 11:52 RBC 4.10 Mil/cmm (3.80-5.10) 02/11/17 11:52 Hgb 13.0 gm/dL (11.7-15.5) 02/11/17 11:52 Hct 38.5 % (35.0-45.0) D 02/11/17 11:52 MCV 93.9 fl (81-100) 02/11/17 11:52 MCH 31.7 pg (27.0-31.0) H 02/11/17 11:52 MCHC Differential 33.8 pg (28.0-36.0) 02/11/17 11:52 RDW 14.1 % (11.5-20.0) 02/11/17 11:52 Plt Count 389 Th/cmm (150-400) 02/11/17 11:52 MPV 6.2 fl 02/11/17 11:52 Neutrophils % 66.6 % (40.0-80.0) 02/11/17 11:52 Lymphocytes % 24.9 % (20.0-50.0) 02/11/17 11:52 Monocytes % 6.0 % (2.0-10.0) 02/11/17 11:52 Eosinophils % 2.0 % (0.0-5.0) 02/11/17 11:52 Basophils % 0.5 % (0.0-2.0) 02/11/17 11:52 Sodium 143 mEq/L (136-145) 02/11/17 11:52 Potassium 3.9 mEq/L (3.5-5.1) 02/11/17 11:52 Chloride 109 mEq/L (98-107) H 02/11/17 11:52 Carbon Dioxide 23.1 mEq/L (21.0-31.0) 02/11/17 11:52 Anion Gap 14.8 (7.0-16.0) 02/11/17 11:52 BUN 9 mg/dL (7-25) 02/11/17 11:52 Creatinine 0.5 mg/dL (0.6-1.2) L 02/11/17 11:52 Est GFR ( Amer) > 60.0 ml/min (>90) 02/11/17 11:52 Est GFR (Non-Af Amer) > 60.0 ml/min 02/11/17 11:52 BUN/Creatinine Ratio 18.0 02/11/17 11:52 Glucose 97 mg/dL (70-105) 02/11/17 11:52 Calcium 9.9 mg/dL (8.6-10.3) 02/11/17 11:52 Total Bilirubin 0.4 mg/dL (0.3-1.0) 02/11/17 11:52 AST 14 U/L (13-39) 02/11/17 11:52 ALT 8 U/L (7-52) 02/11/17 11:52 Alkaline Phosphatase 114 U/L (34-104) H 02/11/17 11:52 Troponin I 0.01 ng/mL (0.01-0.05) 02/11/17 11:52 Total Protein 7.4 gm/dL (6.0-8.3) 02/11/17 11:52 Albumin 4.6 gm/dL (3.7-5.3) 02/11/17 11:52 Globulin 2.8 gm/dL 02/11/17 11:52 Albumin/Globulin Ratio 1.6 (1.0-1.8) 02/11/17 11:52 Triglycerides 261 mg/dL (<150) H 02/11/17 11:52 Cholesterol 221 mg/dL (<200) H 02/11/17 11:52 LDL Cholesterol Direct 108 mg/dL (75-193) 02/11/17 11:52 HDL Cholesterol 65 mg/dL (23-92) 02/11/17 11:52 TSH 0.88 uIU/ml (0.34-5.60) 02/11/17 11:52 RPR NONREACTIVE (NONREACTIVE) 02/11/17 11:52 - Physical Exam Vitals and I&O: Vital Signs Temp 98.2 F 02/16/17 06:30 Pulse 97 02/16/17 06:30 Resp 19 02/16/17 06:30 BP 133/86 02/16/17 06:30 Pulse Ox 99 02/16/17 06:30 Intake & Output 02/15/17 02/16/17 02/16/17 18:59 06:59 18:59 Intake Total 900 400 Balance 900 400 Intake: Oral 900 400 Other: # Voids 3 3 # Bowel Movements 1 Stool Characteristics Soft Active Medications: Current Medications Acetaminophen (Tylenol) 650 mg PO Q4H PRN PRN Reason: Mild Pain / Temp above 100 Stop: 04/12/17 13:20 Last Admin: 02/14/17 19:02 Dose: 650 mg Al Hydrox/Mg Hydrox/Simethicone (Maalox) 30 ml PO Q4H PRN PRN Reason: GI DISTRESS Stop: 04/12/17 13:20 Last Admin: 02/12/17 13:06 Dose: 30 ml Duloxetine HCl (Cymbalta) 60 mg PO DAILY GRAZYNA PRN Reason: Protocol Stop: 04/14/17 11:51 Last Admin: 02/15/17 08:44 Dose: 60 mg Gabapentin (Neurontin) 300 mg PO BID GRAZYNA Stop: 04/12/17 16:59 Last Admin: 02/15/17 16:32 Dose: 300 mg Hydrocortisone (Hydrocortisone 1%) 1 appl TP TID GRAZYNA Stop: 04/14/17 20:59 Last Admin: 02/15/17 21:21 Dose: 1 appl Lorazepam (Ativan) 1 mg PO Q4H PRN; Protocol PRN Reason: Anxiety Stop: 04/12/17 15:26 Last Admin: 02/13/17 08:36 Dose: 1 mg Magnesium Hydroxide (Milk Of Magnesia) 30 ml PO HS PRN PRN Reason: Constipation Multivitamins/Vitamin C (Theragran) 1 tab PO DAILY GRAZYNA Stop: 04/13/17 08:59 Last Admin: 02/15/17 08:44 Dose: 1 tab Ondansetron HCl (Zofran Odt) 4 mg PO Q6H PRN PRN Reason: Nausea Stop: 04/13/17 16:14 Last Admin: 02/15/17 13:16 Dose: 4 mg Oxycodone HCl (Oxycontin) 20 mg PO DAILY GRAZYNA Stop: 04/13/17 08:59 Last Admin: 02/15/17 08:45 Dose: Not Given Oxycodone HCl (Oxycontin) 20 mg PO Q8HR PRN PRN Reason: Severe Pain Stop: 04/13/17 16:59 Last Admin: 02/16/17 05:36 Dose: 20 mg Quetiapine Fumarate (Seroquel) 50 mg PO HS GRAZYNA PRN Reason: Protocol Stop: 04/12/17 20:59 Last Admin: 02/15/17 21:20 Dose: 50 mg Zolpidem Tartrate (Ambien) 5 mg PO HS PRN PRN Reason: Insomnia Stop: 04/12/17 20:59 Last Admin: 02/12/17 20:12 Dose: 5 mg - Procedures Procedures: Procedures Procedure Code Date EGD BIOPSY SINGLE/MULTIPLE 50128 12/17/16 EXCISION OF STOMACH, ENDO, DIAGN [id number] 12/17/16 Assessment/Plan - Problem List Patient Problems: All Active Problems SUICIDAL IDEATION; CHRONIC PAIN (Acute) Chest pain (Acute) R07.9
[2017-02-16] MEDS: Multivitamin Tab PO SCH (08:07)
--- NOTE | 2017-02-17 02:39 | Progress Notes ---
DATE: 02/16/2017 SUBJECTIVE: Chart reviewed and the patient interviewed, also discussed the patient's condition with the staff and reviewed records and labs. The patient seems to be slightly more irritable and more agitated today than yesterday, but also she seems to be less intrusive. The patient also is not writing notes as much as she was couple of days ago. She is still sarcastic and is still irritable and hyperverbal with thought processes are circumstantial and tangential. Otherwise, the patient is compliant with taking her medications and no side effects of medications. ASSESSMENT: The patient is still psychotic. TREATMENT PLAN: We will continue Cymbalta, Seroquel, and Neurontin at same dose and will continue adjusting the dose. Also, continue to work on her irritability and we will continue to follow up. JOB# [id number]
[2017-02-17] MEDS: Multivitamin Tab PO SCH (09:29)
[2017-02-17] MEDS: oxyCODONE 5 mg IR Tab PO PRN (17:45)
--- NOTE | 2017-02-17 20:44 | Progress Notes ---
DATE: 02/11/2017 SUBJECTIVE: The patient was seen, chart reviewed, and discussed with staff. The patient is calmer today, talking about leaving, high risk for relapse, still depressed, overwhelmed, depression and suicidal ideations. High risk for alcohol relapse . Sleeping fairly well, eating well. She is compliant with her treatment. ASSESSMENT: The patient remains symptomatic, depressed, overwhelmed, still suicidal, not rodney for safety, but improvement to some extent noted. PLAN: We will continue to monitor, continue Breanna, increase Seroquel. JOB# [id number]
[2017-02-18] MEDS: oxyCODONE 5 mg IR Tab PO PRN ×2 (05:27→13:31)
[2017-02-18] MEDS: Multivitamin Tab PO SCH (08:32)
--- NOTE | 2017-02-18 09:39 | General Progress Note ---
Subjective - Review of Systems Events since last encounter: patient continues to feel depressed under psych care , no other complaints Objective - Results Result Diagrams: 02/11/17 11:52 02/11/17 11:52 Recent Labs: Laboratory Last Values WBC 8.5 Th/cmm (4.8-10.8) 02/11/17 11:52 RBC 4.10 Mil/cmm (3.80-5.10) 02/11/17 11:52 Hgb 13.0 gm/dL (11.7-15.5) 02/11/17 11:52 Hct 38.5 % (35.0-45.0) D 02/11/17 11:52 MCV 93.9 fl (81-100) 02/11/17 11:52 MCH 31.7 pg (27.0-31.0) H 02/11/17 11:52 MCHC Differential 33.8 pg (28.0-36.0) 02/11/17 11:52 RDW 14.1 % (11.5-20.0) 02/11/17 11:52 Plt Count 389 Th/cmm (150-400) 02/11/17 11:52 MPV 6.2 fl 02/11/17 11:52 Neutrophils % 66.6 % (40.0-80.0) 02/11/17 11:52 Lymphocytes % 24.9 % (20.0-50.0) 02/11/17 11:52 Monocytes % 6.0 % (2.0-10.0) 02/11/17 11:52 Eosinophils % 2.0 % (0.0-5.0) 02/11/17 11:52 Basophils % 0.5 % (0.0-2.0) 02/11/17 11:52 Sodium 143 mEq/L (136-145) 02/11/17 11:52 Potassium 3.9 mEq/L (3.5-5.1) 02/11/17 11:52 Chloride 109 mEq/L (98-107) H 02/11/17 11:52 Carbon Dioxide 23.1 mEq/L (21.0-31.0) 02/11/17 11:52 Anion Gap 14.8 (7.0-16.0) 02/11/17 11:52 BUN 9 mg/dL (7-25) 02/11/17 11:52 Creatinine 0.5 mg/dL (0.6-1.2) L 02/11/17 11:52 Est GFR ( Amer) > 60.0 ml/min (>90) 02/11/17 11:52 Est GFR (Non-Af Amer) > 60.0 ml/min 02/11/17 11:52 BUN/Creatinine Ratio 18.0 02/11/17 11:52 Glucose 97 mg/dL (70-105) 02/11/17 11:52 Calcium 9.9 mg/dL (8.6-10.3) 02/11/17 11:52 Total Bilirubin 0.4 mg/dL (0.3-1.0) 02/11/17 11:52 AST 14 U/L (13-39) 02/11/17 11:52 ALT 8 U/L (7-52) 02/11/17 11:52 Alkaline Phosphatase 114 U/L (34-104) H 02/11/17 11:52 Troponin I 0.01 ng/mL (0.01-0.05) 02/11/17 11:52 Total Protein 7.4 gm/dL (6.0-8.3) 02/11/17 11:52 Albumin 4.6 gm/dL (3.7-5.3) 02/11/17 11:52 Globulin 2.8 gm/dL 02/11/17 11:52 Albumin/Globulin Ratio 1.6 (1.0-1.8) 02/11/17 11:52 Triglycerides 261 mg/dL (<150) H 02/11/17 11:52 Cholesterol 221 mg/dL (<200) H 02/11/17 11:52 LDL Cholesterol Direct 108 mg/dL (75-193) 02/11/17 11:52 HDL Cholesterol 65 mg/dL (23-92) 02/11/17 11:52 TSH 0.88 uIU/ml (0.34-5.60) 02/11/17 11:52 RPR NONREACTIVE (NONREACTIVE) 02/11/17 11:52 - Physical Exam Vitals and I&O: Vital Signs Temp 99.1 F 02/18/17 06:41 Pulse 101 02/18/17 06:41 Resp 20 02/18/17 06:41 BP 110/69 02/18/17 06:41 Pulse Ox 94 02/18/17 06:41 Intake & Output 02/17/17 02/18/17 02/18/17 18:59 06:59 18:59 Intake Total 600 Balance 600 Intake: Oral 600 Other: # Voids 4 Active Medications: Current Medications Acetaminophen (Tylenol) 650 mg PO Q4H PRN PRN Reason: Mild Pain / Temp above 100 Stop: 04/12/17 13:20 Last Admin: 02/16/17 07:07 Dose: 650 mg Al Hydrox/Mg Hydrox/Simethicone (Maalox) 30 ml PO Q4H PRN PRN Reason: GI DISTRESS Stop: 04/12/17 13:20 Last Admin: 02/12/17 13:06 Dose: 30 ml Duloxetine HCl (Cymbalta) 60 mg PO DAILY GRAZYNA PRN Reason: Protocol Stop: 04/14/17 11:51 Last Admin: 02/18/17 08:33 Dose: 60 mg Gabapentin (Neurontin) 300 mg PO BID GRAZYNA Stop: 04/12/17 16:59 Last Admin: 02/18/17 08:33 Dose: 300 mg Hydrocortisone (Hydrocortisone 1%) 1 appl TP TID GRAZYNA Stop: 04/14/17 20:59 Last Admin: 02/18/17 09:18 Dose: 1 appl Lorazepam (Ativan) 1 mg PO Q4H PRN; Protocol PRN Reason: Anxiety Stop: 04/12/17 15:26 Last Admin: 02/16/17 18:42 Dose: 1 mg Magnesium Hydroxide (Milk Of Magnesia) 30 ml PO HS PRN PRN Reason: Constipation Multivitamins/Vitamin C (Theragran) 1 tab PO DAILY GRAZYNA Stop: 04/13/17 08:59 Last Admin: 02/18/17 08:32 Dose: 1 tab Ondansetron HCl (Zofran Odt) 4 mg PO Q6H PRN PRN Reason: Nausea Stop: 04/13/17 16:14 Last Admin: 02/16/17 18:42 Dose: 4 mg Oxycodone HCl (Oxycontin) 20 mg PO DAILY GRAZYNA Stop: 04/13/17 08:59 Last Admin: 02/17/17 09:28 Dose: 20 mg Oxycodone HCl (Oxycodone Ir) 20 mg PO Q8HR PRN PRN Reason: Severe Pain Stop: 04/18/17 15:04 Last Admin: 02/18/17 05:27 Dose: 20 mg Quetiapine Fumarate (Seroquel) 100 mg PO HS GRAZYNA PRN Reason: Protocol Stop: 04/18/17 20:59 Last Admin: 02/17/17 20:28 Dose: 100 mg Zolpidem Tartrate (Ambien) 5 mg PO HS PRN PRN Reason: Insomnia Stop: 04/12/17 20:59 Last Admin: 02/12/17 20:12 Dose: 5 mg - Procedures Procedures: Procedures Procedure Code Date EGD BIOPSY SINGLE/MULTIPLE 96628 12/17/16 EXCISION OF STOMACH, ENDO, DIAGN [id number] 12/17/16 Assessment/Plan - Problem List Patient Problems: All Active Problems SUICIDAL IDEATION; CHRONIC PAIN (Acute) Chest pain (Acute) R07.9
--- NOTE | 2017-02-18 23:34 | Progress Notes ---
DATE: 02/18/2017 SUBJECTIVE: The patient seen, chart reviewed, discussed with staff. The patient remains depressed, overwhelmed, still endorsing suicidal fantasies. She on a positive note is motivated for staying off of alcohol, scared of relapsing. Sleeping fairly well, eating well. Still endorsing psychological distress and turmoil. ASSESSMENT: The patient is symptomatic, depressed, overwhelmed, still endorsing SI. PLAN: Continue to monitor. Continue increased dose of Seroquel. JOB# [id number]
[2017-02-19] MEDS: oxyCODONE 5 mg IR Tab PO PRN ×2 (05:18→20:19)
[2017-02-19] MEDS: Multivitamin Tab PO SCH (08:12)
--- NOTE | 2017-02-19 14:37 | General Progress Note ---
Subjective - Review of Systems Events since last encounter: patient continues to be depressed , no change form yesterday denies cp, sob Objective - Results Result Diagrams: 02/11/17 11:52 02/11/17 11:52 Recent Labs: Laboratory Last Values WBC 8.5 Th/cmm (4.8-10.8) 02/11/17 11:52 RBC 4.10 Mil/cmm (3.80-5.10) 02/11/17 11:52 Hgb 13.0 gm/dL (11.7-15.5) 02/11/17 11:52 Hct 38.5 % (35.0-45.0) D 02/11/17 11:52 MCV 93.9 fl (81-100) 02/11/17 11:52 MCH 31.7 pg (27.0-31.0) H 02/11/17 11:52 MCHC Differential 33.8 pg (28.0-36.0) 02/11/17 11:52 RDW 14.1 % (11.5-20.0) 02/11/17 11:52 Plt Count 389 Th/cmm (150-400) 02/11/17 11:52 MPV 6.2 fl 02/11/17 11:52 Neutrophils % 66.6 % (40.0-80.0) 02/11/17 11:52 Lymphocytes % 24.9 % (20.0-50.0) 02/11/17 11:52 Monocytes % 6.0 % (2.0-10.0) 02/11/17 11:52 Eosinophils % 2.0 % (0.0-5.0) 02/11/17 11:52 Basophils % 0.5 % (0.0-2.0) 02/11/17 11:52 Sodium 143 mEq/L (136-145) 02/11/17 11:52 Potassium 3.9 mEq/L (3.5-5.1) 02/11/17 11:52 Chloride 109 mEq/L (98-107) H 02/11/17 11:52 Carbon Dioxide 23.1 mEq/L (21.0-31.0) 02/11/17 11:52 Anion Gap 14.8 (7.0-16.0) 02/11/17 11:52 BUN 9 mg/dL (7-25) 02/11/17 11:52 Creatinine 0.5 mg/dL (0.6-1.2) L 02/11/17 11:52 Est GFR ( Amer) > 60.0 ml/min (>90) 02/11/17 11:52 Est GFR (Non-Af Amer) > 60.0 ml/min 02/11/17 11:52 BUN/Creatinine Ratio 18.0 02/11/17 11:52 Glucose 97 mg/dL (70-105) 02/11/17 11:52 Calcium 9.9 mg/dL (8.6-10.3) 02/11/17 11:52 Total Bilirubin 0.4 mg/dL (0.3-1.0) 02/11/17 11:52 AST 14 U/L (13-39) 02/11/17 11:52 ALT 8 U/L (7-52) 02/11/17 11:52 Alkaline Phosphatase 114 U/L (34-104) H 02/11/17 11:52 Troponin I 0.01 ng/mL (0.01-0.05) 02/11/17 11:52 Total Protein 7.4 gm/dL (6.0-8.3) 02/11/17 11:52 Albumin 4.6 gm/dL (3.7-5.3) 02/11/17 11:52 Globulin 2.8 gm/dL 02/11/17 11:52 Albumin/Globulin Ratio 1.6 (1.0-1.8) 02/11/17 11:52 Triglycerides 261 mg/dL (<150) H 02/11/17 11:52 Cholesterol 221 mg/dL (<200) H 02/11/17 11:52 LDL Cholesterol Direct 108 mg/dL (75-193) 02/11/17 11:52 HDL Cholesterol 65 mg/dL (23-92) 02/11/17 11:52 TSH 0.88 uIU/ml (0.34-5.60) 02/11/17 11:52 RPR NONREACTIVE (NONREACTIVE) 02/11/17 11:52 - Physical Exam Vitals and I&O: Vital Signs Temp 98.4 F 02/19/17 05:27 Pulse 93 02/19/17 11:05 Resp 20 02/19/17 11:05 BP 139/73 02/19/17 05:27 Pulse Ox 96 02/19/17 05:27 Intake & Output 02/18/17 02/19/17 02/19/17 18:59 06:59 18:59 Intake Total 1800 Balance 1800 Weight (lbs) 65.771 kg Intake: Oral 1800 Other: # Voids 4 3 # Bowel Movements 0 0 Stool Characteristics Soft Formed Active Medications: Current Medications Acetaminophen (Tylenol) 650 mg PO Q4H PRN PRN Reason: Mild Pain / Temp above 100 Stop: 04/12/17 13:20 Last Admin: 02/16/17 07:07 Dose: 650 mg Al Hydrox/Mg Hydrox/Simethicone (Maalox) 30 ml PO Q4H PRN PRN Reason: GI DISTRESS Stop: 04/12/17 13:20 Last Admin: 02/12/17 13:06 Dose: 30 ml Duloxetine HCl (Cymbalta) 60 mg PO DAILY GRAZYNA PRN Reason: Protocol Stop: 04/14/17 11:51 Last Admin: 02/19/17 08:12 Dose: 60 mg Gabapentin (Neurontin) 300 mg PO BID GRAZYNA Stop: 04/12/17 16:59 Last Admin: 02/19/17 08:15 Dose: 300 mg Hydrocortisone (Hydrocortisone 1%) 1 appl TP TID GRAZYNA Stop: 04/14/17 20:59 Last Admin: 02/19/17 08:15 Dose: 1 appl Lorazepam (Ativan) 1 mg PO Q4H PRN; Protocol PRN Reason: Anxiety Stop: 04/12/17 15:26 Last Admin: 02/18/17 20:23 Dose: 1 mg Magnesium Hydroxide (Milk Of Magnesia) 30 ml PO HS PRN PRN Reason: Constipation Multivitamins/Vitamin C (Theragran) 1 tab PO DAILY GRAZYNA Stop: 04/13/17 08:59 Last Admin: 02/19/17 08:12 Dose: 1 tab Ondansetron HCl (Zofran Odt) 4 mg PO Q6H PRN PRN Reason: Nausea Stop: 04/13/17 16:14 Last Admin: 02/16/17 18:42 Dose: 4 mg Oxycodone HCl (Oxycontin) 20 mg PO DAILY GRAZYNA Stop: 04/13/17 08:59 Last Admin: 02/19/17 11:55 Dose: 20 mg Oxycodone HCl (Oxycodone Ir) 20 mg PO Q8HR PRN PRN Reason: Severe Pain Stop: 04/18/17 15:04 Last Admin: 02/19/17 05:18 Dose: 20 mg Quetiapine Fumarate (Seroquel) 100 mg PO HS GRAZYNA PRN Reason: Protocol Stop: 04/18/17 20:59 Last Admin: 02/18/17 20:23 Dose: 100 mg Zolpidem Tartrate (Ambien) 5 mg PO HS PRN PRN Reason: Insomnia Stop: 04/12/17 20:59 Last Admin: 02/12/17 20:12 Dose: 5 mg - Procedures Procedures: Procedures Procedure Code Date EGD BIOPSY SINGLE/MULTIPLE 64275 12/17/16 EXCISION OF STOMACH, ENDO, DIAGN [id number] 12/17/16 Assessment/Plan - Problem List Patient Problems: All Active Problems SUICIDAL IDEATION; CHRONIC PAIN (Acute) Chest pain (Acute) R07.9 Nutritional Asmnt/Malnutr-PDOC - Dietary Evaluation Malnutrition Findings (Please click <Entered> for more info): Nutritional Asmnt/Malnutrition Start: 02/18/17 17: 41 Text: Status: Complete Freq: Document 02/18/17 17:41 GSUN (Rec: 02/18/17 17:47 [email or web address] [email or web address]) Nutritional Asmnt/Malnutrition Patient General Information Nutritional Screening Diagnosis Diagnosis Depression Pertinent Medical Hx/Surgical Hx DJD, chronic pain syndrome, hx alcohol abuse Subjective Information 56 year old female. Pt was very pleasant, denied nutritional concerns at this time. Avg PO intake 100% of meals since adm, meeting nutritional needs. Pt stated food has been great. Teeth intact, no allergies. Pt report UBW 150lb, EMR 145lb, bedscale 115.8lb today most liekly inaccurate. No muscle fat wasting noted. Current Diet Order/ Nutrition Support Regular Pertinent Medications MOM, Theragran, Zofran, Seroquel Pertinent Labs 02/11: triglycerides 261H, cholesterol 221H Nutritional Hx/Data Height 1.7 m Height (Calculated Centimeters) 170.2 Current Weight (lbs) 65.771 kg Weight (Calculated Kilograms) 65.8 Weight (Calculated Grams) 86304.9 Usual body Weight (lbs) 150 [place] Body Weight 135 Weight Status Approriate GI Symptoms Skin Integrity/Comment: Hung 20. Skin intact. Current %PO Good (75-100%) Estimated Nutritional Goals BEE in Kcals: Using Current wt Calories/Kcals/Kg CBW 145lb/65.9kg Kcals Calculated 1648-1976kcal (25-30kcal/kg) Protein: Using Current wt Protein Calculated 66g (1g/kg) Fluid: ml 1648-1977ml (1ml/kcal) Nutritional Problem 1. Problem Problem No nutritional problem at this time. Intervention/Recommendation Comments 1. Continue with current diet order. Avg PO intake is adequate. Expected Outcomes/Goals Expected Outcomes/Goals 1. PO intake conitnue to meet at least 75% of estimated nutritional needs.
--- NOTE | 2017-02-19 14:40 | General Progress Note ---
Subjective - Review of Systems Events since last encounter: no distress patient awke remains depressed Objective - Results Result Diagrams: 02/11/17 11:52 02/11/17 11:52 Recent Labs: Laboratory Last Values WBC 8.5 Th/cmm (4.8-10.8) 02/11/17 11:52 RBC 4.10 Mil/cmm (3.80-5.10) 02/11/17 11:52 Hgb 13.0 gm/dL (11.7-15.5) 02/11/17 11:52 Hct 38.5 % (35.0-45.0) D 02/11/17 11:52 MCV 93.9 fl (81-100) 02/11/17 11:52 MCH 31.7 pg (27.0-31.0) H 02/11/17 11:52 MCHC Differential 33.8 pg (28.0-36.0) 02/11/17 11:52 RDW 14.1 % (11.5-20.0) 02/11/17 11:52 Plt Count 389 Th/cmm (150-400) 02/11/17 11:52 MPV 6.2 fl 02/11/17 11:52 Neutrophils % 66.6 % (40.0-80.0) 02/11/17 11:52 Lymphocytes % 24.9 % (20.0-50.0) 02/11/17 11:52 Monocytes % 6.0 % (2.0-10.0) 02/11/17 11:52 Eosinophils % 2.0 % (0.0-5.0) 02/11/17 11:52 Basophils % 0.5 % (0.0-2.0) 02/11/17 11:52 Sodium 143 mEq/L (136-145) 02/11/17 11:52 Potassium 3.9 mEq/L (3.5-5.1) 02/11/17 11:52 Chloride 109 mEq/L (98-107) H 02/11/17 11:52 Carbon Dioxide 23.1 mEq/L (21.0-31.0) 02/11/17 11:52 Anion Gap 14.8 (7.0-16.0) 02/11/17 11:52 BUN 9 mg/dL (7-25) 02/11/17 11:52 Creatinine 0.5 mg/dL (0.6-1.2) L 02/11/17 11:52 Est GFR ( Amer) > 60.0 ml/min (>90) 02/11/17 11:52 Est GFR (Non-Af Amer) > 60.0 ml/min 02/11/17 11:52 BUN/Creatinine Ratio 18.0 02/11/17 11:52 Glucose 97 mg/dL (70-105) 02/11/17 11:52 Calcium 9.9 mg/dL (8.6-10.3) 02/11/17 11:52 Total Bilirubin 0.4 mg/dL (0.3-1.0) 02/11/17 11:52 AST 14 U/L (13-39) 02/11/17 11:52 ALT 8 U/L (7-52) 02/11/17 11:52 Alkaline Phosphatase 114 U/L (34-104) H 02/11/17 11:52 Troponin I 0.01 ng/mL (0.01-0.05) 02/11/17 11:52 Total Protein 7.4 gm/dL (6.0-8.3) 02/11/17 11:52 Albumin 4.6 gm/dL (3.7-5.3) 02/11/17 11:52 Globulin 2.8 gm/dL 02/11/17 11:52 Albumin/Globulin Ratio 1.6 (1.0-1.8) 02/11/17 11:52 Triglycerides 261 mg/dL (<150) H 02/11/17 11:52 Cholesterol 221 mg/dL (<200) H 02/11/17 11:52 LDL Cholesterol Direct 108 mg/dL (75-193) 02/11/17 11:52 HDL Cholesterol 65 mg/dL (23-92) 02/11/17 11:52 TSH 0.88 uIU/ml (0.34-5.60) 02/11/17 11:52 RPR NONREACTIVE (NONREACTIVE) 02/11/17 11:52 - Physical Exam Vitals and I&O: Vital Signs Temp 98.4 F 02/19/17 05:27 Pulse 93 02/19/17 11:05 Resp 20 02/19/17 11:05 BP 139/73 02/19/17 05:27 Pulse Ox 96 08/23/17 05:27 Intake & Output 02/18/17 02/19/17 02/19/17 18:59 06:59 18:59 Intake Total 1800 Balance 1800 Weight (lbs) 65.771 kg Intake: Oral 1800 Other: # Voids 4 3 # Bowel Movements 0 0 Stool Characteristics Soft Formed Active Medications: Current Medications Acetaminophen (Tylenol) 650 mg PO Q4H PRN PRN Reason: Mild Pain / Temp above 100 Stop: 04/12/17 13:20 Last Admin: 02/16/17 07:07 Dose: 650 mg Al Hydrox/Mg Hydrox/Simethicone (Maalox) 30 ml PO Q4H PRN PRN Reason: GI DISTRESS Stop: 04/12/17 13:20 Last Admin: 02/12/17 13:06 Dose: 30 ml Duloxetine HCl (Cymbalta) 60 mg PO DAILY GRAZYNA PRN Reason: Protocol Stop: 04/14/17 11:51 Last Admin: 02/19/17 08:12 Dose: 60 mg Gabapentin (Neurontin) 300 mg PO BID GRAZYNA Stop: 04/12/17 16:59 Last Admin: 02/19/17 08:15 Dose: 300 mg Hydrocortisone (Hydrocortisone 1%) 1 appl TP TID GRAZYNA Stop: 04/14/17 20:59 Last Admin: 02/19/17 08:15 Dose: 1 appl Lorazepam (Ativan) 1 mg PO Q4H PRN; Protocol PRN Reason: Anxiety Stop: 04/12/17 15:26 Last Admin: 02/18/17 20:23 Dose: 1 mg Magnesium Hydroxide (Milk Of Magnesia) 30 ml PO HS PRN PRN Reason: Constipation Multivitamins/Vitamin C (Theragran) 1 tab PO DAILY GRAZYNA Stop: 04/13/17 08:59 Last Admin: 02/19/17 08:12 Dose: 1 tab Ondansetron HCl (Zofran Odt) 4 mg PO Q6H PRN PRN Reason: Nausea Stop: 04/13/17 16:14 Last Admin: 02/16/17 18:42 Dose: 4 mg Oxycodone HCl (Oxycontin) 20 mg PO DAILY GRAZYNA Stop: 04/13/17 08:59 Last Admin: 02/19/17 11:55 Dose: 20 mg Oxycodone HCl (Oxycodone Ir) 20 mg PO Q8HR PRN PRN Reason: Severe Pain Stop: 04/18/17 15:04 Last Admin: 02/19/17 05:18 Dose: 20 mg Quetiapine Fumarate (Seroquel) 100 mg PO HS GRAZYNA PRN Reason: Protocol Stop: 04/18/17 20:59 Last Admin: 02/18/17 20:23 Dose: 100 mg Zolpidem Tartrate (Ambien) 5 mg PO HS PRN PRN Reason: Insomnia Stop: 04/12/17 20:59 Last Admin: 02/12/17 20:12 Dose: 5 mg - Procedures Procedures: Procedures Procedure Code Date EGD BIOPSY SINGLE/MULTIPLE 73882 12/17/16 EXCISION OF STOMACH, ENDO, DIAGN [id number] 12/17/16 Assessment/Plan - Problem List Patient Problems: All Active Problems SUICIDAL IDEATION; CHRONIC PAIN (Acute) Chest pain (Acute) R07.9 Nutritional Asmnt/Malnutr-PDOC - Dietary Evaluation Malnutrition Findings (Please click <Entered> for more info): Nutritional Asmnt/Malnutrition Start: 02/18/17 17: 41 Text: Status: Complete Freq: Document 02/18/17 17:41 GSUN (Rec: 02/18/17 17:47 [email or web address] [email or web address]) Nutritional Asmnt/Malnutrition Patient General Information Nutritional Screening Diagnosis Diagnosis Depression Pertinent Medical Hx/Surgical Hx DJD, chronic pain syndrome, hx alcohol abuse Subjective Information 56 year old female. Pt was very pleasant, denied nutritional concerns at this time. Avg PO intake 100% of meals since adm, meeting nutritional needs. Pt stated food has been great. Teeth intact, no allergies. Pt report UBW 150lb, EMR 145lb, bedscale 115.8lb today most liekly inaccurate. No muscle fat wasting noted. Current Diet Order/ Nutrition Support Regular Pertinent Medications MOM, Theragran, Zofran, Seroquel Pertinent Labs 02/11: triglycerides 261H, cholesterol 221H Nutritional Hx/Data Height 1.7 m Height (Calculated Centimeters) 170.2 Current Weight (lbs) 65.771 kg Weight (Calculated Kilograms) 65.8 Weight (Calculated Grams) 07193.9 Usual body Weight (lbs) 150 [place] Body Weight 135 Weight Status Approriate GI Symptoms Skin Integrity/Comment: Hung 20. Skin intact. Current %PO Good (75-100%) Estimated Nutritional Goals BEE in Kcals: Using Current wt Calories/Kcals/Kg CBW 145lb/65.9kg Kcals Calculated 1648-1977kcal (25-30kcal/kg) Protein: Using Current wt Protein Calculated 66g (1g/kg) Fluid: ml 1648-1977ml (1ml/kcal) Nutritional Problem 1. Problem Problem No nutritional problem at this time. Intervention/Recommendation Comments 1. Continue with current diet order. Avg PO intake is adequate. Expected Outcomes/Goals Expected Outcomes/Goals 1. PO intake conitnue to meet at least 75% of estimated nutritional needs.
--- NOTE | 2017-02-20 05:27 | Progress Notes ---
DATE: 02/11/2017 SUBJECTIVE: The patient seen, chart reviewed, discussed with staff. The patient remains melancholic, sad, down and depressed, leading to difficulties with , in nursing home. She states she is homeless, worried about her car, high risk for relapse on alcohol. The patient states "I don't know" when I asked her about suicidal thoughts. She has had suicidal thoughts in the past. The patient is sleeping fairly well, eating well, better attention to ADLs. ASSESSMENT: The patient remains symptomatic down, depressed, melancholic, overwhelmed and highly anxious. PLAN: We will continue to monitor and titrate medications. We are actively trying to help her with the sober living as well. [facility]# [id number]
[2017-02-20] MEDS: oxyCODONE 5 mg IR Tab PO PRN ×2 (06:25→19:04)
[2017-02-20] MEDS: Multivitamin Tab PO SCH (09:31)
--- NOTE | 2017-02-20 10:25 | General Progress Note ---
Subjective - Review of Systems Events since last encounter: 56 year old female with no change from yesterday still remains depressed has no other complaints Objective - Results Result Diagrams: 02/11/17 11:52 02/11/17 11:52 Recent Labs: Laboratory Last Values WBC 8.5 Th/cmm (4.8-10.8) 02/11/17 11:52 RBC 4.10 Mil/cmm (3.80-5.10) 02/11/17 11:52 Hgb 13.0 gm/dL (11.7-15.5) 02/11/17 11:52 Hct 38.5 % (35.0-45.0) D 02/11/17 11:52 MCV 93.9 fl (81-100) 02/11/17 11:52 MCH 31.7 pg (27.0-31.0) H 02/11/17 11:52 MCHC Differential 33.8 pg (28.0-36.0) 02/11/17 11:52 RDW 14.1 % (11.5-20.0) 02/11/17 11:52 Plt Count 389 Th/cmm (150-400) 02/11/17 11:52 MPV 6.2 fl 02/11/17 11:52 Neutrophils % 66.6 % (40.0-80.0) 02/11/17 11:52 Lymphocytes % 24.9 % (20.0-50.0) 02/11/17 11:52 Monocytes % 6.0 % (2.0-10.0) 02/11/17 11:52 Eosinophils % 2.0 % (0.0-5.0) 02/11/17 11:52 Basophils % 0.5 % (0.0-2.0) 02/11/17 11:52 Sodium 143 mEq/L (136-145) 02/11/17 11:52 Potassium 3.9 mEq/L (3.5-5.1) 02/11/17 11:52 Chloride 109 mEq/L (98-107) H 02/11/17 11:52 Carbon Dioxide 23.1 mEq/L (21.0-31.0) 02/11/17 11:52 Anion Gap 14.8 (7.0-16.0) 02/11/17 11:52 BUN 9 mg/dL (7-25) 02/11/17 11:52 Creatinine 0.5 mg/dL (0.6-1.2) L 02/11/17 11:52 Est GFR ( Amer) > 60.0 ml/min (>90) 02/11/17 11:52 Est GFR (Non-Af Amer) > 60.0 ml/min 02/11/17 11:52 BUN/Creatinine Ratio 18.0 02/11/17 11:52 Glucose 97 mg/dL (70-105) 02/11/17 11:52 Calcium 9.9 mg/dL (8.6-10.3) 02/11/17 11:52 Total Bilirubin 0.4 mg/dL (0.3-1.0) 02/11/17 11:52 AST 14 U/L (13-39) 02/11/17 11:52 ALT 8 U/L (7-52) 02/11/17 11:52 Alkaline Phosphatase 114 U/L (34-104) H 02/11/17 11:52 Troponin I 0.01 ng/mL (0.01-0.05) 02/11/17 11:52 Total Protein 7.4 gm/dL (6.0-8.3) 02/11/17 11:52 Albumin 4.6 gm/dL (3.7-5.3) 02/11/17 11:52 Globulin 2.8 gm/dL 02/11/17 11:52 Albumin/Globulin Ratio 1.6 (1.0-1.8) 02/11/17 11:52 Triglycerides 261 mg/dL (<150) H 02/11/17 11:52 Cholesterol 221 mg/dL (<200) H 02/11/17 11:52 LDL Cholesterol Direct 108 mg/dL (75-193) 02/11/17 11:52 HDL Cholesterol 65 mg/dL (23-92) 02/11/17 11:52 TSH 0.88 uIU/ml (0.34-5.60) 02/11/17 11:52 RPR NONREACTIVE (NONREACTIVE) 02/11/17 11:52 - Physical Exam Vitals and I&O: Vital Signs Temp 97.9 F 02/20/17 06:49 Pulse 98 02/20/17 06:49 Resp 20 02/20/17 06:49 BP 114/76 08/24/17 06:49 Pulse Ox 98 02/20/17 06:49 Intake & Output 02/19/17 02/20/17 02/20/17 18:59 06:59 18:59 Intake Total 900 120 Balance 900 120 Intake: Oral 900 120 Other: # Voids 3 3 # Bowel Movements 1 Stool Characteristics Soft Formed Active Medications: Current Medications Acetaminophen (Tylenol) 650 mg PO Q4H PRN PRN Reason: Mild Pain / Temp above 100 Stop: 04/12/17 13:20 Last Admin: 02/16/17 07:07 Dose: 650 mg Al Hydrox/Mg Hydrox/Simethicone (Maalox) 30 ml PO Q4H PRN PRN Reason: GI DISTRESS Stop: 04/12/17 13:20 Last Admin: 02/12/17 13:06 Dose: 30 ml Duloxetine HCl (Cymbalta) 60 mg PO DAILY GRAZYNA PRN Reason: Protocol Stop: 04/14/17 11:51 Last Admin: 02/20/17 09:30 Dose: 60 mg Gabapentin (Neurontin) 300 mg PO BID GRAZYNA Stop: 04/12/17 16:59 Last Admin: 02/20/17 09:31 Dose: 300 mg Hydrocortisone (Hydrocortisone 1%) 1 appl TP TID GRAZYNA Stop: 04/14/17 20:59 Last Admin: 02/20/17 09:53 Dose: 1 appl Lorazepam (Ativan) 1 mg PO Q4H PRN; Protocol PRN Reason: Anxiety Stop: 04/12/17 15:26 Last Admin: 02/18/17 20:23 Dose: 1 mg Magnesium Hydroxide (Milk Of Magnesia) 30 ml PO HS PRN PRN Reason: Constipation Multivitamins/Vitamin C (Theragran) 1 tab PO DAILY GRAZYNA Stop: 04/13/17 08:59 Last Admin: 02/20/17 09:31 Dose: 1 tab Ondansetron HCl (Zofran Odt) 4 mg PO Q6H PRN PRN Reason: Nausea Stop: 04/13/17 16:14 Last Admin: 02/19/17 18:31 Dose: 4 mg Oxycodone HCl (Oxycontin) 20 mg PO DAILY GRAZYNA Stop: 04/13/17 08:59 Last Admin: 02/20/17 09:54 Dose: Not Given Oxycodone HCl (Oxycodone Ir) 20 mg PO Q8HR PRN PRN Reason: Severe Pain Stop: 04/18/17 15:04 Last Admin: 02/20/17 06:25 Dose: 20 mg Quetiapine Fumarate (Seroquel) 100 mg PO HS GRAZYNA PRN Reason: Protocol Stop: 04/18/17 20:59 Last Admin: 02/19/17 20:19 Dose: 100 mg Zolpidem Tartrate (Ambien) 5 mg PO HS PRN PRN Reason: Insomnia Stop: 04/12/17 20:59 Last Admin: 02/12/17 20:12 Dose: 5 mg - Procedures Procedures: Procedures Procedure Code Date EGD BIOPSY SINGLE/MULTIPLE 76534 12/17/16 EXCISION OF STOMACH, ENDO, DIAGN [id number] 12/17/16 Assessment/Plan - Problem List Patient Problems: All Active Problems SUICIDAL IDEATION; CHRONIC PAIN (Acute) Chest pain (Acute) R07.9 Nutritional Asmnt/Malnutr-PDOC - Dietary Evaluation Malnutrition Findings (Please click <Entered> for more info): Nutritional Asmnt/Malnutrition Start: 02/18/17 17: 41 Text: Status: Complete Freq: Document 02/18/17 17:41 GSUN (Rec: 02/18/17 17:47 [email or web address] [email or web address]) Nutritional Asmnt/Malnutrition Patient General Information Nutritional Screening Diagnosis Diagnosis Depression Pertinent Medical Hx/Surgical Hx DJD, chronic pain syndrome, hx alcohol abuse Subjective Information 56 year old female. Pt was very pleasant, denied nutritional concerns at this time. Avg PO intake 100% of meals since adm, meeting nutritional needs. Pt stated food has been great. Teeth intact, no allergies. Pt report UBW 150lb, EMR 145lb, bedscale 115.8lb today most liekly inaccurate. No muscle fat wasting noted. Current Diet Order/ Nutrition Support Regular Pertinent Medications MOM, Theragran, Zofran, Seroquel Pertinent Labs 02/11: triglycerides 261H, cholesterol 221H Nutritional Hx/Data Height 1.7 m Height (Calculated Centimeters) 170.2 Current Weight (lbs) 65.771 kg Weight (Calculated Kilograms) 65.8 Weight (Calculated Grams) 40321.9 Usual body Weight (lbs) 150 [place] Body Weight 135 Weight Status Approriate GI Symptoms Skin Integrity/Comment: Hung Crisostomo. Skin intact. Current %PO Good (75-100%) Estimated Nutritional Goals BEE in Kcals: Using Current wt Calories/Kcals/Kg CBW 145lb/65.9kg Kcals Calculated 1648-1976kcal (25-30kcal/kg) Protein: Using Current wt Protein Calculated 66g (1g/kg) Fluid: ml 1648-1977ml (1ml/kcal) Nutritional Problem 1. Problem Problem No nutritional problem at this time. Intervention/Recommendation Comments 1. Continue with current diet order. Avg PO intake is adequate. Expected Outcomes/Goals Expected Outcomes/Goals 1. PO intake conitnue to meet at least 75% of estimated nutritional needs.
[2017-02-21] MEDS: oxyCODONE 5 mg IR Tab PO PRN (06:23)
[2017-02-21] MEDS: Multivitamin Tab PO SCH (10:28)
--- NOTE | 2017-02-21 13:16 | General Progress Note ---
Subjective - Review of Systems Events since last encounter: no change patient stable denies cp, sob Objective - Results Result Diagrams: 02/11/17 11:52 02/11/17 11:52 Recent Labs: Laboratory Last Values WBC 8.5 Th/cmm (4.8-10.8) 02/11/17 11:52 RBC 4.10 Mil/cmm (3.80-5.10) 02/11/17 11:52 Hgb 13.0 gm/dL (11.7-15.5) 02/11/17 11:52 Hct 38.5 % (35.0-45.0) D 02/11/17 11:52 MCV 93.9 fl (81-100) 02/11/17 11:52 MCH 31.7 pg (27.0-31.0) H 02/11/17 11:52 MCHC Differential 33.8 pg (28.0-36.0) 02/11/17 11:52 RDW 14.1 % (11.5-20.0) 02/11/17 11:52 Plt Count 389 Th/cmm (150-400) 02/11/17 11:52 MPV 6.2 fl 02/11/17 11:52 Neutrophils % 66.6 % (40.0-80.0) 02/11/17 11:52 Lymphocytes % 24.9 % (20.0-50.0) 02/11/17 11:52 Monocytes % 6.0 % (2.0-10.0) 02/11/17 11:52 Eosinophils % 2.0 % (0.0-5.0) 02/11/17 11:52 Basophils % 0.5 % (0.0-2.0) 02/11/17 11:52 Sodium 143 mEq/L (136-145) 02/11/17 11:52 Potassium 3.9 mEq/L (3.5-5.1) 02/11/17 11:52 Chloride 109 mEq/L (98-107) H 02/11/17 11:52 Carbon Dioxide 23.1 mEq/L (21.0-31.0) 02/11/17 11:52 Anion Gap 14.8 (7.0-16.0) 02/11/17 11:52 BUN 9 mg/dL (7-25) 02/11/17 11:52 Creatinine 0.5 mg/dL (0.6-1.2) L 02/11/17 11:52 Est GFR ( Amer) > 60.0 ml/min (>90) 02/11/17 11:52 Est GFR (Non-Af Amer) > 60.0 ml/min 02/11/17 11:52 BUN/Creatinine Ratio 18.0 02/11/17 11:52 Glucose 97 mg/dL (70-105) 02/11/17 11:52 Calcium 9.9 mg/dL (8.6-10.3) 02/11/17 11:52 Total Bilirubin 0.4 mg/dL (0.3-1.0) 02/11/17 11:52 AST 14 U/L (13-39) 02/11/17 11:52 ALT 8 U/L (7-52) 02/11/17 11:52 Alkaline Phosphatase 114 U/L (34-104) H 02/11/17 11:52 Troponin I 0.01 ng/mL (0.01-0.05) 02/11/17 11:52 Total Protein 7.4 gm/dL (6.0-8.3) 02/11/17 11:52 Albumin 4.6 gm/dL (3.7-5.3) 02/11/17 11:52 Globulin 2.8 gm/dL 02/11/17 11:52 Albumin/Globulin Ratio 1.6 (1.0-1.8) 02/11/17 11:52 Triglycerides 261 mg/dL (<150) H 02/11/17 11:52 Cholesterol 221 mg/dL (<200) H 02/11/17 11:52 LDL Cholesterol Direct 108 mg/dL (75-193) 02/11/17 11:52 HDL Cholesterol 65 mg/dL (23-92) 02/11/17 11:52 TSH 0.88 uIU/ml (0.34-5.60) 02/11/17 11:52 RPR NONREACTIVE (NONREACTIVE) 02/11/17 11:52 - Physical Exam Vitals and I&O: Vital Signs Temp 97.8 F 02/20/17 14:00 Pulse 80 02/20/17 14:00 Resp 20 02/20/17 14:00 BP 124/85 02/20/17 14:00 Pulse Ox 97 02/20/17 14:00 Intake & Output 02/20/17 02/21/17 02/21/17 18:59 06:59 18:59 Intake Total 1000 Balance 1000 Intake: Oral 1000 Other: # Voids 3 # Bowel Movements 1 - Procedures Procedures: Procedures Procedure Code Date EGD BIOPSY SINGLE/MULTIPLE 31658 12/17/16 EXCISION OF STOMACH, ENDO, DIAGN [id number] 12/17/16 Assessment/Plan - Problem List Patient Problems: All Active Problems Chest pain (Acute) R07.9 SUICIDAL IDEATION; CHRONIC PAIN (Acute) Nutritional Asmnt/Malnutr-PDOC - Dietary Evaluation Malnutrition Findings (Please click <Entered> for more info): Nutritional Asmnt/Malnutrition Start: 02/18/17 17: 41 Text: Status: Complete Freq: Document 02/18/17 17:41 GSUN (Rec: 02/18/17 17:47 [id number] [email or web address]) Nutritional Asmnt/Malnutrition Patient General Information Nutritional Screening Diagnosis Diagnosis Depression Pertinent Medical Hx/Surgical Hx DJD, chronic pain syndrome, hx alcohol abuse Subjective Information 56 year old female. Pt was very pleasant, denied nutritional concerns at this time. Avg PO intake 100% of meals since adm, meeting nutritional needs. Pt stated food has been great. Teeth intact, no allergies. Pt report UBW 150lb, EMR 145lb, bedscale 115.8lb today most liekly inaccurate. No muscle fat wasting noted. Current Diet Order/ Nutrition Support Regular Pertinent Medications MOM, Theragran, Zofran, Seroquel Pertinent Labs 02/11: triglycerides 261H, cholesterol 221H Nutritional Hx/Data Height 1.7 m Height (Calculated Centimeters) 170.2 Current Weight (lbs) 65.771 kg Weight (Calculated Kilograms) 65.8 Weight (Calculated Grams) 20222.9 Usual body Weight (lbs) 150 [place] Body Weight 135 Weight Status Approriate GI Symptoms Skin Integrity/Comment: Hung 20. Skin intact. Current %PO Good (75-100%) Estimated Nutritional Goals BEE in Kcals: Using Current wt Calories/Kcals/Kg CBW 145lb/65.9kg Kcals Calculated 8-1976kcal (25-30kcal/kg) Protein: Using Current wt Protein Calculated 66g (1g/kg) Fluid: ml 1648-1977ml (1ml/kcal) Nutritional Problem 1. Problem Problem No nutritional problem at this time. Intervention/Recommendation Comments 1. Continue with current diet order. Avg PO intake is adequate. Expected Outcomes/Goals Expected Outcomes/Goals 1. PO intake conitnue to meet at least 75% of estimated nutritional needs.
--- NOTE | 2017-02-21 13:26 | Progress Notes ---
DATE: 02/20/2017 SUBJECTIVE: The patient seen, chart reviewed, discussed with staff. The patient remains depressed, withdrawn, melancholic, high risk for relapse, homeless, does not know really what to do or where to go. in long term. She is missing her car. We are trying to get her into a sober living, still leading to intermittent SI, but improvement noted. She was feeling somewhat more hopeful and more optimistic, sleeping well, eating better, better attention to ADLs. ASSESSMENT: The patient remains symptomatic, still depressed, withdrawn, continued safety concerns, also concerns about her ability to provide for basic food, clothing, and intermediate. We are trying to help her with placement. [facility]# [id number]
--- NOTE | 2017-02-21 21:20 | Discharge Summary ---
DATE OF DISCHARGE: 02/21/2017 IDENTIFYING INFORMATION: The patient is a 56-year-old female. CHIEF COMPLAINT: "I called 911 told them I was suicidal." HISTORY OF PRESENT ILLNESS: The patient is a patient of Dr. Noriega with a history of depression, alcoholism, left [facility] and went to a hotel and drank alcohol, became sick, depressed, hopeless, despairing, states that she cannot stop drinking, states that her is currently in fdc, despairing, hopeless, psychological distress, and turmoil. She had multiple admission because of depression. Apparently, she is . Her in fdc right now. She is homeless. COURSE IN THE HOSPITAL: Dr. Noriega initiated Cymbalta and I did increase the dose myself to 60 mg a day when I saw her a week ago. She is also on clonidine, Neurontin 300 mg twice a day and she was given Ativan as needed for detoxing multivitamin. She was given Seroquel 100 mg at bedtime and the patient seems to have gotten well. She was sleeping well, eating well, so as she have improved. Apparently, Dr. Noriega told her yesterday that she is going and told the staff and seems to be doing well and ready to go except that she did not want to go by ambulance, wanted to go by her car, so we had to consider against medical advice because consent for her safety. FINAL DIAGNOSES: AXIS I: Major depression, recurrent with no psychosis, recurrent, alcohol dependence. MEDICAL DIAGNOSES: Deferred to the medical doctor. The patient will be discharging against medical advice. Follow up with the psychiatrist, primary care physician and therapist. EXPECTED OUTCOME: Stable if the patient complies with the above. [facility]# [id number]
--- NOTE | 2017-02-24 22:19 | Discharge Summary ---
DATE OF DISCHARGE: 02/21/2017 HOSPITAL COURSE: The patient is a 56-year-old female admitted with severe depression to the Geropsych Unit, ____ degenerative arthritis, long history of chronic back pain and depression. The patient, I saw her in the Geropsych Unit. The patient has managed to ____ the patient is feeling better. On 02/21/2017, the patient was sent to [facility] ____ and follow up with me in the office in 2 days. DISCHARGE CONDITION: At the time of discharge the patient was stable ____. JOB# [id number]
== END 2017-02-21 13:10 | disposition left against medical advice (07) | DRG 885 ==
LOC: ER 11:36 → GERO 13:08
PROVIDERS: ADMIT Psychiatry & Neurology Psychiatry; ATTEND Psychiatry & Neurology Psychiatry
DX: F33.2 Major depressive disorder, recurrent severe without psychotic features (principal); R45.851 Suicidal ideations; F11.20 Opioid dependence, uncomplicated; F41.9 Anxiety disorder, unspecified; F10.20 Alcohol dependence, uncomplicated; M19.90 Unspecified osteoarthritis, unspecified site; G62.9 Polyneuropathy, unspecified; F17.210 Nicotine dependence, cigarettes, uncomplicated; G89.4 Chronic pain syndrome; M54.9 Dorsalgia, unspecified; F29 Unspecified psychosis not due to a substance or known physiological condition; Z91.14 Patient's other noncompliance with medication regimen; Z80.3 Family history of malignant neoplasm of breast; Z80.0 Family history of malignant neoplasm of digestive organs; Z83.3 Family history of diabetes mellitus; Z59.0 Homelessness
CPT/HCPCS: 36415-UA; 80053-TC; 80061-TC; 84443-TC; 84484-TC; 85025-TC; 86592-TC; 90899; 93005; G0410; Q0162; Z7610